=== PATIENT | female | born 1950 | race Caucasian/White ===

== ENCOUNTER 2017-06-14 17:48 | Inpatient (IN) | payer MEDICARE ==
[2017-06-14 19:30] LABS: CKMB 5.9 ng/mL (0-6.6)
[2017-06-14 19:35] LABS: Troponin I 1.294 ng/mL (< 0.028)
[2017-06-14] MEDS ORDERED: Enoxaparin Sodium 100 MG/ML SYRINGE ONE (20:03)
[2017-06-14] MEDS ORDERED: Nitroglycerin 2% Ointment 1 INCH/1 GM Packet ONE ×2 (20:03→20:04)
[2017-06-14] MEDS ORDERED: Acetaminophen 325 MG TAB ONE (20:03)
[2017-06-14 21:50] LABS: #Basophils 0.1 thou/uL (0.0-0.2); #Eosinphils 0.3 thou/uL (0.0-0.7); #Lymphocytes 1.7 thou/uL (1.20-3.40); #Monocytes 0.5 thou/uL (0.11-0.59); #Neutrophils 3.9 thou/uL (1.40-6.50); %Basophils 0.9 % (0.0-1.0); %Lymphocytes 26.4 % (21.0-51.0); %Monocytes 7.1 % (0.0-10.0); %Neutrophils 60.5 % (42.0-75.0); Hemoglobin 13.9 g/dL (12.0-16.0); Mean Corpuscular HGB CONC 32.2 g/dL (32.0-36.0); Mean Corpuscular Hemoglobin 30.2 pg (27.0-31.0); Mean Corpuscular Volume 93.8 fl (81.0-99.0); Mean Platelet Volume 8.4 fL (7.4-10.4); Platelet Count 240 thou/uL (130-400); RBC Distribution Width 11.7 % (11.5-14.5); Red Blood Cell (RBC) Count 4.59 mill/uL (4.20-5.40); White Blood Cell (WBC) Count 6.5 thou/uL (4.8-10.8)
[2017-06-14 22:00] LABS: ALT (SGPT) 21 U/L (8-55); AST (SGOT) 23 U/L (5-34); Alkaline Phosphatase 92 U/L (40-150); Anion Gap 13 mmol/L (10-20); BUN (Urea Nitrogen) 23 mg/dL (9.8-20.1); Bilirubin, Total 0.7 mg/dL (0.2-1.2); Calc. Creatinine Clearance 0 mL/min (70-130); Calcium 9.5 mg/dL (7.8-10.44); Carbon Dioxide 27 mmol/L (23-31); Chloride 103 mmol/L (98-107); Estimated GFR-MDRD 38; Globulin 3.4 g/dL (2.4-3.5); Glucose 90 mg/dL (80-115); Potassium 4.2 mmol/L (3.5-5.1); Protein, Total 7.4 g/dL (6.0-8.3); Sodium 139 mmol/L (136-145)
[2017-06-14] MEDS ORDERED: Sodium Chloride 0.9% 1,000 ML IV SCH ×2 (22:07→22:15)
[2017-06-14] MEDS ORDERED: Senokot 8.6 MG TAB PO PRN (22:15)
[2017-06-14] MEDS ORDERED: Nitroglycerin 0.4 MG TAB (25 Tab Bottle) SL PRN (22:15)
[2017-06-14] MEDS ORDERED: Ondansetron HCl/PF 4 MG/2 ML Vial IVP PRN (22:15)
[2017-06-14] MEDS ORDERED: Mag-Al 1200 mg/1200 mg/30 ML UDCUP PO PRN (22:15)
[2017-06-14] MEDS ORDERED: Calcium Carbonate 500 MG ChewTAB PO PRN (22:15)
[2017-06-14] MEDS ORDERED: Bisacodyl 5 MG TAB PO PRN (22:15)
[2017-06-14 22:26] LABS: CKMB 5.9 ng/mL (0-6.6)
[2017-06-14 22:28] VITALS: BMI 41.0
[2017-06-14 22:29] LABS: Troponin I 1.638 ng/mL (< 0.028)
[2017-06-14] MEDS ORDERED: ALPRAZolam 0.25 MG TAB PO PRN (23:35)
[2017-06-14] MEDS ORDERED: Simvastatin 20 MG TAB PO SCH (23:37)
[2017-06-14 23:42] LABS: Bilirubin Negative (Negative); Blood, Urine Negative (Negative); Clarity CLEAR (Clear); Glucose, Urine (Dipstick) Negative (Negative); Leukocyte Negative (Negative); Nitrite Negative (Negative); Protein, Urine (Dipstick) Negative (Neg-Trace); Specific Gravity, Urine 1.026 (1.002-1.036); Urobilinogen 0.2 mg/dL (0.2-1.0); pH, Urine 5.5 (5.0-9.0)
[2017-06-14] MEDS ORDERED: ALPRAZolam 0.5 MG TAB PO SCH (23:45)
[2017-06-15] MEDS: Losartan 25 MG TAB PO SCH ×2 (00:01→20:34)
--- NOTE | 2017-06-15 00:57 | HP ---
DATE OF ADMISSION: 06/14/2017 PRIMARY CARE PHYSICIAN: Jacquelyn Dangelo M.D. PRIMARY RN GASTROENTEROLOGY: Katie Rivera M.D. CHIEF COMPLAINT: Chest pain and palpitations. HISTORY OF PRESENT ILLNESS: Ms. Jones is a pleasant 67-year-old female with past medical history of GERD, hypothyroidism, chronic kidney disease stage 3, hypertension, and dyslipidemia, who presented to outside emergency room with the above-mentioned complaint. History is mainly obtained by the criselda ent herself and electronic medical records have been reviewed. According to Ms. Jones, she has been feeling fine up until this morning. All of sudden while she wa s working in the house, she had the feeling of chest pain that started as an indigestion. She says n ormally she gets indigestion, but this was different and the fact that the symptoms did not go away a nd it got worse. She started to have severe pain in the substernal area and she rates it as a 9/10 i n intensity. It went through her back and between her shoulder blades and her left shoulder. She de nies any arm paraesthesias. She did have faster breathing with that, but denies any shortness of autmun ath. She was not nauseated and did not feel dizzy. However, she felt that her heart was beating rick lly fast. She called the EMS and took her 's baby aspirin and felt marginal relief. EMS gave her nitroglycerin, which helped ease the pain to about 2/10. She also reported that the EKG done by the EMS people was unremarkable reportedly, so she was brought in to the outside emergency room. Th is is in [place]. Her initial troponin over there was 0.05 with repeat troponin of 0.3, otherwise normal CK-MBs. Over there, her EKG was negative for ischemia, but showing PVCs and trigeminy. She w as transferred here to our emergency room for further evaluation. In our emergency room, her blood pressure upon presentation was 171/108 and she was saturating 98% on room air with heart rate of 83. Her repeat troponin in our emergency room was 1.294. She was given one dose of subcutaneous Lovenox at therapeutic dose of 1 mg/kg. Cardiology was consulted. She was also given rectal Tylenol, transdermal nitroglycerin 1 inch and IV fluids one liter. The case was d iscussed with Dr. Orosco by the emergency room physician, Dr. Sanders and she is now being admitted for further evaluation and non-ST elevation MS. The patient reports that she has had a stress test done [place] [address] Rivera as an outpatient and wa s unremarkable. However, she reports that she had an echocardiogram done in December last year which was reportedly "somewhat abnormal," but the plan was to monitor her symptoms. She denies any ongoing chronic symptoms like easy fatigue or dyspnea on exertion or edema or angina-like symptoms on a caroline y basis. She denies otherwise any other recent illnesses. PAST MEDICAL HISTORY: 1. Hypertension. 2. Dyslipidemia. 3. Gastroesophageal reflux disease. 4. Hypothyroidism. 5. Chronic kidney disease stage 3. 6. Uterine prolapse. 7. Urinary incontinence. 8. Glaucoma. 9. Seasonal asthma. PAST SURGICAL HISTORY: Hysterectomy in 2016 and left knee surgery. PSYCHIATRIC HISTORY: None. SOCIAL HISTORY: She is and lives with her family. No history of drug, tobacco or alcohol ab use. FAMILY HISTORY: Coronary artery disease in her father in his 50s who has suffered 2 heart attacks. Also, both of her paternal grandparents had cardiac disease. She denies any stroke or cancer, diabet es or hypertension running in her family. ALLERGIES: PENICILLIN G SODIUM. CURRENT MEDICATIONS: Losartan/hydrochlorothiazide 50/12.5 mg daily, simvastatin 10 mg daily, levothy roxine 75 mcg daily, omeprazole 20 mg daily, latanoprost eye drops once a day. REVIEW OF SYSTEMS: The patient currently is chest pain free, but is feeling somewhat palpitations an d anxiety. Other than that, a 10-point review of system is negative, except for those mentioned in t he history and physical. The following complete review of systems was negative, unless otherwise men tioned in the HPI or below: Constitutional: Weight loss or gain, ability to conduct usual activitie s. Skin: Rash, itching. Eyes: Double vision, pain. ENT/Mouth: Nose bleeding, neck stiffness, pa in, tenderness. Cardiovascular: Palpitations, dyspnea on exertion, orthopnea. Respiratory: Shortn ess of breath, wheezing, cough, hemoptysis, fever or night sweats. Gastrointestinal: Poor appetite, abdominal pain, heartburn, nausea, vomiting, constipation, or diarrhea. Genitourinary: Urgency, fr equency, dysuria, nocturia. Musculoskeletal: Pain, swelling. Neurologic/Psychiatric: Anxiety, dep ression. Allergy/Immunologic: Skin rash, bleeding tendency. LABORATORY EXAMINATION: Her most recent labs include CBC unremarkable. Serum chemistries show BUN o f 23, creatinine 1.40, otherwise unremarkable. Her repeat troponin in our facility is 1.29 and then 1.638. CK-MB is normal. Chest x-ray is not available, I am not sure if it was done in the outside emergency room. EKG was re viewed by myself, which shows some ST-T wave depression in the inferior leads and trigeminy, otherwis e sinus rhythm. PHYSICAL EXAMINATION: VITAL SIGNS: Most recent vital signs, temperature 97.9, pulse of 77, respirations 16, saturating 94% on room air, and blood pressure 142/73. GENERAL: She appears somewhat anxious, but is otherwise awake, alert, oriented x3, in no acute distr ess. HEENT: Mucous membrane is moist and pink. No oropharyngeal exudate or erythema. Head is normocepha lic, atraumatic. Pupils equal, reactive to light and accommodation. Extraocular movement intact. NECK: Supple without any lymphadenopathy, JVD or bruit. CHEST: Clear to auscultation without any wheezing, rales or rhonchi. Rate and rhythm is regular wit hout any murmur, rubs or gallops. ABDOMEN: Soft, nontender, nondistended with positive bowel sounds. EXTREMITIES: Free of any cyanosis, clubbing, or edema. NEUROLOGIC: Nonfocal. SKIN: Free of any rashes or bruises. PSYCHIATRIC: Some anxiety noticed. VASCULAR: +2 pedal pulses felt bilaterally. IMPRESSION AND PLAN: 1. Non-ST elevation myocardial infarction. The patient's symptoms are all consistent with an acute cardiac event. She will be admitted to the telemetry unit with close monitoring. We will also use o xygen, morphine, aspirin, as well as continuation of ARBs. Cardiology is aware and the plan is for h er to go to the cardiac catheterization lab in the morning. She has received 1 dose of Lovenox at th erapeutic range in the emergency room and we will hold any further anticoagulation in light of the mt ed of cardiac catheterization in the morning. If she does not have cardiac catheterization in the mo rning, we will start her on heparin drip versus continuation of 1 mg/kg Lovenox b.i.d. dosing. We wi ll defer this with Cardiology team at this time. Her blood pressure has been on the rather lower beronica e after receiving nitroglycerin in the emergency room, so we will hold the beta blockers, but add bet a blockers at a small dose if her blood pressure allows. At this time, use Xanax for the anxiety sym ptoms associated with ongoing cardiac issues. Add normal saline as the patient will be n.p.o. after midnight. Otherwise, in situ symptomatic and supportive care and p.r.n. medications. 2. Dyslipidemia. Continue with Zocor. The patient had a lipid panel done earlier this month with L DL of 97, HDL of 52, total cholesterol 167, triglyceride 91. At this time, there is no reason to stew nge or increase her dose. 3. Chronic kidney disease. The patient appears to be at baseline which is around 1.30 to 1.40. Nor mal saline has been started to prevent renal injury in light of the need for cardiac catheterization. 4. Hypertension. Resume her ARB, but hold hydrochlorothiazide to prevent kidney injury. If the bloo d pressure allow, we will add small dose of beta godfrey. 5. Hypothyroidism. Continue Synthroid for now. She will continue to follow with her primary care sarwat duarte. Her TSH was 1.8754 and 06/04/2017. Continue with current dose of Synthroid. 6. Deep venous thrombosis and gastrointestinal prophylaxis. 7. Code status: FULL CODE, discussed with the patient. DISPOSITION: Ms. Jones is currently being admitted to the hospital for non-ST elevation MS and acut e coronary syndrome. Further management will depend upon her clinical course. Estimated length of s jarad at this time is at least 2 to 3 midnights.
[2017-06-15 01:27] LABS: CKMB 5.2 ng/mL (0-6.6)
[2017-06-15 01:34] LABS: Critical Call Chem Troponin I RESULT DECREASING; Troponin I 1.136 ng/mL (< 0.028)
[2017-06-15 05:26] LABS: #Basophils 0.1 thou/uL (0.0-0.2); #Eosinphils 0.3 thou/uL (0.0-0.7); #Lymphocytes 1.9 thou/uL (1.20-3.40); #Monocytes 0.6 thou/uL (0.11-0.59); %Eosinophils 5.7 % (0.0-10.0); %Lymphocytes 32.4 % (21.0-51.0); %Monocytes 10.4 % (0.0-10.0); %Neutrophils 50.5 % (42.0-75.0); Hemoglobin 12.3 g/dL (12.0-16.0); Mean Corpuscular Hemoglobin 31.9 pg (27.0-31.0); Mean Corpuscular Volume 93.7 fl (81.0-99.0); Mean Platelet Volume 8.3 fL (7.4-10.4); Platelet Count 209 thou/uL (130-400); RBC Distribution Width 11.8 % (11.5-14.5); Red Blood Cell (RBC) Count 3.87 mill/uL (4.20-5.40); White Blood Cell (WBC) Count 5.9 thou/uL (4.8-10.8)
[2017-06-15 05:35] LABS: Anion Gap 10 mmol/L (10-20); BUN (Urea Nitrogen) 25 mg/dL (9.8-20.1); CKMB 4.5 ng/mL (0-6.6); Calc. Creatinine Clearance 69 mL/min (70-130); Calcium 8.7 mg/dL (7.8-10.44); Carbon Dioxide 28 mmol/L (23-31); Chloride 105 mmol/L (98-107); Estimated GFR-MDRD 40; Glucose 89 mg/dL (80-115); Potassium 3.8 mmol/L (3.5-5.1); Sodium 139 mmol/L (136-145)
[2017-06-15 05:36] LABS: Critical Call Chem Troponin I RESULT DECREASING; Troponin I 0.838 ng/mL (< 0.028)
[2017-06-15] MEDS: Levothyroxine Sodium 75 MCG TAB PO SCH (05:37)
[2017-06-15] MEDS: Famotidine 20 MG TAB PO SCH (08:52)
[2017-06-15] MEDS: Enoxaparin Sodium 100 MG/ML SYRINGE SC SCH ×2 (08:52→20:34)
[2017-06-15] MEDS: Aspirin 325 MG TAB PO SCH (08:52)
[2017-06-15] MEDS: Nitroglycerin 2% Ointment 1 INCH/1 GM Packet TOP SCH ×2 (08:52→16:59)
[2017-06-15] MEDS: Carvedilol 3.125 MG TAB PO SCH ×2 (08:52→16:59)
[2017-06-15] MEDS ORDERED: Famotidine/PF 20 mg/2ml Vial SLOW IVP SCH (09:00)
[2017-06-15] MEDS ORDERED: Enoxaparin Sodium 30 MG/0.3 ML SYRINGE SC SCH (09:00)
[2017-06-15] MEDS ORDERED: Prevnar 13-Val Conj/PF 0.5 ML SYRINGE IM ONE (09:00)
[2017-06-15] MEDS ORDERED: Famotidine 20 MG TAB PO SCH (09:00)
[2017-06-15] MEDS: Acetaminophen 325 MG TAB PO PRN ×2 (09:11→17:02)
[2017-06-15] MEDS: Sodium Chloride 0.9% 1,000 ML IV SCH ×2 (10:28→19:35)
[2017-06-15 10:47] LABS: Magnesium 2.1 mg/dL (1.6-2.6); Phosphorus 4.3 mg/dL (2.3-4.7)
--- NOTE | 2017-06-15 17:25 | CON ---
DATE OF CONSULTATION: 06/15/2017 HISTORY OF PRESENT ILLNESS: The patient is a 67-year-old woman, who presents for evaluation of chest discomfort. The patient has no previous cardiac history. She has previously undergone a stress test and echocardiogram, which were apparently unremarkable. The patient developed acute onset of midsternal chest discomfort. This radiated to her back. The patient came to the emergency room and received nitroglycerin with resolution of her chest pain. PAST MEDICAL HISTORY: 1. Hypertension. 2. Hypercholesterolemia. 3. Chronic renal insufficiency. PAST SURGICAL HISTORY: Knee surgery and hysterectomy. FAMILY HISTORY: Positive family history of heart disease. SOCIAL HISTORY: Nonsmoker. ALLERGIES: PENICILLIN. REVIEW OF SYSTEMS: No history of easy bruising or bleeding. Ten-point system is otherwise unremarkable. PHYSICAL EXAMINATION: GENERAL: An obese woman in no acute distress. VITAL SIGNS: Blood pressure is 119/63. NECK: No jugular distention, no carotid bruits. LUNGS: Clear to auscultation. HEART: Regular rate and rhythm, normal S1, S2, no murmurs. ABDOMEN: Distended. EXTREMITIES: Showed trace edema. SKIN: Warm and dry. NEUROLOGIC: Nonfocal. VASCULAR: Radial pulses 2+. LABORATORY DATA: Sodium 139, potassium 3.8, chloride 105, bicarbonate 28, BUN 25, creatinine 1.3, troponin 0.83. White blood cell count 5.9, hemoglobin 12.3 , hematocrit 36.3 and platelets are 209,000. EKG revealed normal sinus rhythm with a normal ECG. IMPRESSION: 1. Non-Q-wave myocardial infarction. 2. Hypertension. 3. Chronic renal insufficiency. 4. Obesity. PLAN: This patient presents with a non-Q-wave myocardial infarction. The patient is being treated with aspirin, Lovenox, and lipid lowering medication. The patient has also been started on beta-godfrey therapy. An echocardiogram will be obtained. We will follow this patient with you through her hospitalization. [place]
--- NOTE | 2017-06-15 19:27 | PDOC.PN ---
- Subjective Encounter Start Date: 06/15/17 Encounter Start Time: 09:30 Patient seen and examined. No new complaints. No overnight events. No CP/SOB/ syncope - Objective MAR Reviewed: Yes Vital Signs & Weight: Vital Signs (12 hours) Temp Pulse Resp BP Pulse Ox 06/15/17 15:13 97.9 F 72 18 125/65 92 L 06/15/17 11:31 97.3 F L 67 18 114/58 L 96 06/15/17 08:52 97.6 F 69 16 95 Weight Weight 231 lb 6.4 oz I&O: 06/14/17 06/15/17 06/16/17 06:59 06:59 06:59 Output Total 100 Balance -100 Result Diagrams: 06/15/17 04:00 06/15/17 04:00 Radiology Reviewed by me: Yes (CXR - negative) EKG Reviewed by me: Yes (Tele SR) Phys Exam - Physical Examination Constitutional: NAD Neck: no JVD Respiratory: no wheezing, no rales, no rhonchi, clear to auscultation bilateral Cardiovascular: RRR, no significant murmur, no rub no heaves/pulsations Gastrointestinal: soft, non-tender, no distention, positive bowel sounds Musculoskeletal: no edema Neurological: non-focal, normal sensation, moves all 4 limbs Psychiatric: A&O x 3 Dx/Plan - Plan DVT proph w/lovenox, DVT proph w/SCDs IMPRESSION: 1. NSTEMI 2. CKD 3 3. Morbid Obesity BMI 41 4. Dyslipidemia 5. HTN / Hypothyroidism PLAN: * Cont 1 mg/kg Lovenox * Add Nitro patch * Cont ASA / Statins * Cont Levothyroxine * cont Losartan * HCTZ on hold * NPO past MN for possible Cath in AM * Cardio input appreciated Review of Systems - Review of Systems Respiratory: negative: Cough, Dry, Shortness of Breath, Hemoptysis, SOB with Excertion, Pleuritic Pain, Sputum, Wheezing Cardiovascular: negative: chest pain, palpitations, orthopnea, paroxysmal nocturnal dyspnea, edema, light headedness Gastrointestinal: negative: Nausea, Vomiting, Abdominal Pain, Diarrhea, Constipation, Melena, Hematochezia - Medications/Allergies Allergies/Adverse Reactions: Allergies Allergy/AdvReac Type Severity Reaction Status Date / Time Penicillins Allergy Verified 06/14/17 22:06 Medications: Current Medications Acetaminophen (Tylenol) 650 mg PO Q4H PRN PRN Reason: Headache/Fever or Pain Last Admin: 06/15/17 17:02 Dose: 650 mg Al Hydroxide/Mg Hydroxide (Maalox) 30 ml PO Q6H PRN PRN Reason: Heartburn or Indigestion Alprazolam (Xanax) 0.25 mg PO BIDPRN PRN PRN Reason: Anxiety Aspirin (Aspirin) 325 mg PO DAILY [facility] Last Admin: 06/15/17 08:52 Dose: 325 mg Atorvastatin Calcium (Lipitor) 40 mg PO [facility] Bisacodyl (Dulcolax) 10 mg PO DAILYPRN PRN PRN Reason: Constipation Calcium Carbonate (Tums) 1,000 mg PO Q4H PRN PRN Reason: Heartburn or Indigestion Carvedilol (Coreg) 3.125 mg PO BID-[facility] Last Admin: 06/15/17 16:59 Dose: 3.125 mg Enoxaparin Sodium (Lovenox) 100 mg SC 0900,2100 [facility] Stop: 06/15/17 22:00 Last Admin: 06/15/17 08:52 Dose: 100 mg Famotidine (Pepcid) 20 mg PO DAILY [facility] Last Admin: 06/15/17 08:52 Dose: 20 mg Sodium Chloride (Normal Saline 0.9%) 1,000 mls @ 50 mls/hr IV .Q20H [facility] Last Admin: 06/15/17 10:28 Dose: 1,000 mls Latanoprost (Xalatan 0.005% Ophth Soln) 1 drop EA EYE [facility] Levothyroxine Sodium (Synthroid) 75 mcg PO 0600 [facility] Last Admin: 06/15/17 05:37 Dose: 75 mcg Losartan Potassium (Cozaar) 50 mg PO [facility] Last Admin: 06/15/17 00:01 Dose: 50 mg Multivitamins (Theragran) 1 tab PO [facility] Nitroglycerin (Nitrostat) 0.4 mg SL Q5MIN PRN PRN Reason: Chest Pain Nitroglycerin (Nitro-Bid 2% Ointment) 0.5 inch TOP Q8H [facility] Last Admin: 06/15/17 16:59 Dose: 0.5 inch Ondansetron HCl (Zofran) 4 mg IVP Q6H PRN PRN Reason: Nausea/Vomiting Pantoprazole Sodium (Protonix) 40 mg PO DAILY [facility] Senna (Senokot) 2 tab PO HSPRN PRN PRN Reason: Constipation Sodium Chloride (Flush - Normal Saline) 10 ml IVF Q12HR [facility] Sodium Chloride (Flush - Normal Saline) 10 ml IVF PRN PRN PRN Reason: Saline Flush
[2017-06-15] MEDS: Multivit, Therapeutic 1 TAB PO SCH (20:34)
[2017-06-15] MEDS: Latanoprost 0.005% Ophth Soln 2.5 ml Bottle EA EYE SCH (20:39)
[2017-06-15] MEDS ORDERED: Non-Formulary Item 1 EACH (Simvastatin [Zocor] 10 MG) PO SCH (21:00)
[2017-06-15] MEDS ORDERED: Atorvastatin Calcium 20 MG TAB PO SCH (21:00)
[2017-06-15] MEDS ORDERED: Atorvastatin Calcium 40 MG TAB PO SCH (21:00)
[2017-06-16] MEDS: Nitroglycerin 2% Ointment 1 INCH/1 GM Packet TOP SCH ×4 (00:13→23:45)
[2017-06-16] MEDS: Acetaminophen 325 MG TAB PO PRN ×2 (00:15→17:41)
[2017-06-16] MEDS ORDERED: Dicyclomine 10 MG CAP PO PRN (03:53)
[2017-06-16] MEDS: Levothyroxine Sodium 75 MCG TAB PO SCH (06:21)
[2017-06-16] MEDS: Carvedilol 3.125 MG TAB PO SCH ×2 (07:17→17:41)
[2017-06-16] MEDS: Aspirin 325 MG TAB PO SCH (08:36)
[2017-06-16] MEDS: Famotidine 20 MG TAB PO SCH (08:37)
[2017-06-16] MEDS: Sodium Chloride 0.9% 1,000 ML IV SCH (16:11)
--- NOTE | 2017-06-16 17:53 | PDOC.CTH ---
Cardiology Progress Note - Subjective Pt. was seen and eval. today. She denies chest pain or SOB. CIE's were + for NSTEMI. Plan for cardiac cath today but due to emergencies the cath will be delayed until tomorrow. - Objective Vital Signs Temp Pulse Resp BP Pulse Ox 06/16/17 15:05 98.5 F 71 16 136/72 93 L 06/16/17 11:05 98.4 F 74 16 113/60 92 L 06/16/17 08:35 98.5 F 74 16 95 06/16/17 07:15 98.5 F 74 16 132/77 95 Weight 235 lb 4.8 oz 06/15/17 06/16/17 06/17/17 06:59 06:59 06:59 Intake Total 897 Output Total 100 Balance 797 - Physical Examination General/Neuro: alert & oriented x3 Neck: carotid US brisk Lungs: CTA Heart: RRR Abdomen: NT/ND - Labs Result Diagrams: 06/15/17 04:00 06/15/17 04:00 Troponin/CKMB CK-MB (CK-2) 4.5 ng/mL (0-6.6) 06/15/17 04:00 Troponin I 0.838 ng/mL (< 0.028) H* 06/15/17 04:00 - Assessment/Plan 1. NSTEMI: stable at the present time. Plan for cardiac cath tomorrow. 2. Dyslipidemia. 3. HTN. stable Review of Systems - Review of Systems Constitutional: reports: no symptoms reported Respiratory: reports: no symptoms reported Cardiac (ROS): reports: no symptoms reported ABD/GI: reports: no symptoms reported : reports: no symptoms reported Musculoskeletal: reports: no symptoms reported Neurological: reports: no symptoms reported
[2017-06-16] MEDS: Losartan 25 MG TAB PO SCH (20:12)
[2017-06-16] MEDS: Multivit, Therapeutic 1 TAB PO SCH (20:12)
[2017-06-16] MEDS: Latanoprost 0.005% Ophth Soln 2.5 ml Bottle EA EYE SCH (20:14)
[2017-06-16] MEDS ORDERED: Atorvastatin Calcium 20 MG TAB PO SCH (21:00)
[2017-06-16] MEDS ORDERED: Enoxaparin Sodium 100 MG/ML SYRINGE SC SCH (21:00)
--- NOTE | 2017-06-16 21:13 | PDOC.PN ---
- Subjective Encounter Start Date: 06/16/17 Encounter Start Time: 11:00 Patient seen and examined. No new complaints. No overnight events. No CP/syncope /palpitations - Objective MAR Reviewed: Yes Vital Signs & Weight: Vital Signs (12 hours) Temp Pulse Resp BP Pulse Ox 06/16/17 18:20 97.7 F 72 18 136/78 94 L 06/16/17 15:05 98.5 F 71 16 136/72 93 L 06/16/17 11:05 98.4 F 74 16 113/60 92 L Weight Weight 235 lb 4.8 oz I&O: 06/15/17 06/16/17 06/17/17 06:59 06:59 06:59 Intake Total 897 Output Total 100 Balance 797 Result Diagrams: 06/15/17 04:00 06/15/17 04:00 EKG Reviewed by me: Yes (Tele SR) Phys Exam - Physical Examination Constitutional: NAD Respiratory: no wheezing, no rhonchi Cardiovascular: RRR, no rub Gastrointestinal: soft, non-tender, positive bowel sounds Musculoskeletal: no edema Neurological: moves all 4 limbs Dx/Plan - Plan DVT proph w/lovenox, DVT proph w/SCDs IMPRESSION: 1. NSTEMI 2. CKD 3 3. Morbid Obesity BMI 41 4. Dyslipidemia 5. HTN / Hypothyroidism PLAN: * Await Cath * Cont 1 mg/kg Lovenox with Nitro patch * Cont ASA / Statins / Losartan * Cont Levothyroxine * Cardio following Review of Systems - Review of Systems Respiratory: negative: Cough, Dry, Shortness of Breath, Hemoptysis, SOB with Excertion, Pleuritic Pain, Sputum, Wheezing Cardiovascular: negative: chest pain, palpitations, orthopnea, paroxysmal nocturnal dyspnea, edema, light headedness, other - Medications/Allergies Allergies/Adverse Reactions: Allergies Allergy/AdvReac Type Severity Reaction Status Date / Time Penicillins Allergy Verified 06/14/17 22:06 Medications: Current Medications Acetaminophen (Tylenol) 650 mg PO Q4H PRN PRN Reason: Headache/Fever or Pain Last Admin: 06/16/17 17:41 Dose: 650 mg Al Hydroxide/Mg Hydroxide (Maalox) 30 ml PO Q6H PRN PRN Reason: Heartburn or Indigestion Alprazolam (Xanax) 0.25 mg PO BIDPRN PRN PRN Reason: Anxiety Aspirin (Aspirin) 325 mg PO DAILY [facility] Last Admin: 06/16/17 08:36 Dose: 325 mg Atorvastatin Calcium (Lipitor) 40 mg PO [facility] Last Admin: 06/16/17 20:15 Dose: Not Given Bisacodyl (Dulcolax) 10 mg PO DAILYPRN PRN PRN Reason: Constipation Calcium Carbonate (Tums) 1,000 mg PO Q4H PRN PRN Reason: Heartburn or Indigestion Carvedilol (Coreg) 3.125 mg PO BID-[facility] Last Admin: 06/16/17 17:41 Dose: 3.125 mg Dicyclomine HCl (Bentyl) 10 mg PO QID PRN PRN Reason: cramps Last Admin: 06/16/17 04:02 Dose: 10 mg Enoxaparin Sodium (Lovenox) 100 mg SC 2100 [facility] Stop: 06/16/17 23:00 Last Admin: 06/16/17 20:14 Dose: 100 mg Famotidine (Pepcid) 20 mg PO DAILY [facility] Last Admin: 06/16/17 08:37 Dose: 20 mg Sodium Chloride (Normal Saline 0.9%) 1,000 mls @ 50 mls/hr IV .Q20H [facility] Last Admin: 06/16/17 16:11 Dose: 1,000 mls Latanoprost (Xalatan 0.005% Oph Soln) 1 drop EA EYE [facility] Last Admin: 06/16/17 20:14 Dose: 1 drop Levothyroxine Sodium (Synthroid) 75 mcg PO 0600 [facility] Last Admin: 06/16/17 06:21 Dose: 75 mcg Losartan Potassium (Cozaar) 50 mg PO [facility] Last Admin: 06/16/17 20:12 Dose: 50 mg Multivitamins (Theragran) 1 tab PO [facility] Last Admin: 06/16/17 20:12 Dose: 1 tab Nitroglycerin (Nitrostat) 0.4 mg SL Q5MIN PRN PRN Reason: Chest Pain Nitroglycerin (Nitro-Bid 2% Ointment) 0.5 inch TOP Q8H [facility] Last Admin: 06/16/17 17:41 Dose: 0.5 inch Ondansetron HCl (Zofran) 4 mg IVP Q6H PRN PRN Reason: Nausea/Vomiting Last Admin: 06/16/17 00:06 Dose: 4 mg Pantoprazole Sodium (Protonix) 40 mg PO DAILY [facility] Last Admin: 06/16/17 08:37 Dose: 40 mg Senna (Senokot) 2 tab PO HSPRN PRN PRN Reason: Constipation Sodium Chloride (Flush - Normal Saline) 10 ml IVF Q12HR [facility] Last Admin: 06/16/17 20:19 Dose: Not Given Sodium Chloride (Flush - Normal Saline) 10 ml IVF PRN PRN PRN Reason: Saline Flush
[2017-06-17 05:33] LABS: #Eosinphils 0.4 thou/uL (0.0-0.7); #Lymphocytes 1.7 thou/uL (1.20-3.40); #Monocytes 0.5 thou/uL (0.11-0.59); #Neutrophils 2.6 thou/uL (1.40-6.50); %Basophils 0.4 % (0.0-1.0); %Eosinophils 7.7 % (0.0-10.0); %Lymphocytes 33.4 % (21.0-51.0); %Monocytes 9.5 % (0.0-10.0); Hemoglobin 11.2 g/dL (12.0-16.0); Mean Corpuscular HGB CONC 32.8 g/dL (32.0-36.0); Mean Corpuscular Hemoglobin 30.4 pg (27.0-31.0); Mean Corpuscular Volume 92.5 fl (81.0-99.0); Mean Platelet Volume 8.1 fL (7.4-10.4); Platelet Count 195 thou/uL (130-400); RBC Distribution Width 11.8 % (11.5-14.5); Red Blood Cell (RBC) Count 3.69 mill/uL (4.20-5.40); White Blood Cell (WBC) Count 5.2 thou/uL (4.8-10.8)
[2017-06-17 05:55] LABS: Anion Gap 8 mmol/L (10-20); BUN (Urea Nitrogen) 17 mg/dL (9.8-20.1); Calc. Creatinine Clearance 72 mL/min (70-130); Calcium 8.4 mg/dL (7.8-10.44); Carbon Dioxide 27 mmol/L (23-31); Chloride 109 mmol/L (98-107); Estimated GFR-MDRD 42; Glucose 83 mg/dL (80-115); Magnesium 1.9 mg/dL (1.6-2.6); Potassium 3.9 mmol/L (3.5-5.1); Sodium 140 mmol/L (136-145)
[2017-06-17] MEDS: Aspirin 325 MG TAB PO SCH (06:40)
[2017-06-17] MEDS: Carvedilol 3.125 MG TAB PO SCH (06:40)
[2017-06-17] MEDS: Levothyroxine Sodium 75 MCG TAB PO SCH (06:41)
[2017-06-17] MEDS: Famotidine 20 MG TAB PO SCH (06:41)
[2017-06-17] MEDS: Nitroglycerin 2% Ointment 1 INCH/1 GM Packet TOP SCH ×3 (08:34→23:42)
[2017-06-17] MEDS ORDERED: Midazolam HCl 2 mg/2 ml Vial ONE ×2 (09:34→10:26)
[2017-06-17] MEDS ORDERED: Fentanyl 100 MCG/2 ML VIAL ONE (09:34)
[2017-06-17] MEDS ORDERED: Lidocaine 1% (PF) 30 ML VIAL ONE (09:35)
[2017-06-17] MEDS ORDERED: Verapamil 5 MG/2 ML VIAL ONE (09:41)
[2017-06-17] MEDS ORDERED: Heparin 10,000 UNITS/1 ML VIAL ONE (09:41)
[2017-06-17] MEDS ORDERED: Nitroglycerin 100MG/250ML BOT 250 ML ONE (09:41)
[2017-06-17] MEDS ORDERED: Iopamidol 370 76% 100 ML VIAL ONE (09:46)
[2017-06-17] MEDS ORDERED: Iopamidol 370 76% 50 ML VIAL FS ONE (09:46)
[2017-06-17] MEDS ORDERED: TICAGRELOR 90 MG TABLET ONE (10:53)
[2017-06-17] MEDS: Sodium Chloride 0.9% 1,000 ML IV SCH ×2 (13:11→19:29)
[2017-06-17 13:53] LABS: Cardiac Risk 3.2 (Less than 4.5)
[2017-06-17] MEDS: Carvedilol 6.25 MG TAB PO SCH (15:36)
[2017-06-17] MEDS: Acetaminophen 325 MG TAB PO PRN (19:06)
[2017-06-17] MEDS: TICAGRELOR 90 MG TABLET PO SCH (20:32)
[2017-06-17] MEDS: Multivit, Therapeutic 1 TAB PO SCH (20:32)
[2017-06-17] MEDS: Losartan 25 MG TAB PO SCH (20:33)
[2017-06-17] MEDS: Latanoprost 0.005% Ophth Soln 2.5 ml Bottle EA EYE SCH (20:35)
[2017-06-17] MEDS ORDERED: Rosuvastatin 20 MG TAB PO SCH (21:00)
--- NOTE | 2017-06-17 23:00 | PDOC.PN ---
- Subjective Encounter Start Date: 06/17/17 Encounter Start Time: 14:30 Patient seen and examined. No new complaints. No overnight events - Objective MAR Reviewed: Yes Vital Signs & Weight: Vital Signs (12 hours) Temp Pulse Resp BP BP Pulse Ox 06/17/17 19:29 98.4 F 76 16 06/17/17 19:21 98.4 F 76 16 140/68 94 L 06/17/17 15:36 157/76 H 06/17/17 15:09 97.4 F L 66 16 140/72 99 06/17/17 12:17 77 16 164/82 H Weight Weight 236 lb I&O: 06/16/17 06/17/17 06/18/17 06:59 06:59 06:59 Intake Total 897 800 360 Output Total 624 593 7532 Balance 797 500 -740 Result Diagrams: 06/17/17 04:03 06/17/17 04:03 EKG Reviewed by me: Yes (Tele SR) Phys Exam - Physical Examination Constitutional: NAD Respiratory: no wheezing, no rhonchi Cardiovascular: RRR, no rub Gastrointestinal: soft, non-tender, positive bowel sounds Musculoskeletal: no edema Neurological: moves all 4 limbs Dx/Plan - Plan DVT proph w/SCDs IMPRESSION: 1. NSTEMI 2. CKD 3 3. Morbid Obesity BMI 41 4. Dyslipidemia 5. HTN / Hypothyroidism PLAN: * s/p Left Cx stent * Cont ASA / Losartan / Brilinta * Change Lipitor to Crestor due to diarrhea * Cont Levothyroxine * Cardio following * DC in AM if ok with Cardiology Review of Systems - Review of Systems Respiratory: negative: Cough, Dry, Shortness of Breath, Hemoptysis, SOB with Excertion, Pleuritic Pain, Sputum, Wheezing Cardiovascular: negative: chest pain, palpitations, orthopnea, paroxysmal nocturnal dyspnea, edema, light headedness, other - Medications/Allergies Allergies/Adverse Reactions: Allergies Allergy/AdvReac Type Severity Reaction Status Date / Time Penicillins Allergy Verified 06/14/17 22:06 Medications: Current Medications Acetaminophen (Tylenol) 650 mg PO Q4H PRN PRN Reason: Headache/Fever or Pain Last Admin: 06/17/17 19:06 Dose: 650 mg Al Hydroxide/Mg Hydroxide (Maalox) 30 ml PO Q6H PRN PRN Reason: Heartburn or Indigestion Alprazolam (Xanax) 0.25 mg PO BIDPRN PRN PRN Reason: Anxiety Last Admin: 06/17/17 09:21 Dose: 0.25 mg Aspirin (Aspirin Chewable) 81 mg PO DAILY [facility] Bisacodyl (Dulcolax) 10 mg PO DAILYPRN PRN PRN Reason: Constipation Calcium Carbonate (Tums) 1,000 mg PO Q4H PRN PRN Reason: Heartburn or Indigestion Carvedilol (Coreg) 6.25 mg PO BID-[facility] Last Admin: 06/17/17 15:36 Dose: 6.25 mg Dicyclomine HCl (Bentyl) 10 mg PO QID PRN PRN Reason: cramps Last Admin: 06/16/17 04:02 Dose: 10 mg Famotidine (Pepcid) 20 mg PO DAILY [facility] Last Admin: 06/17/17 06:41 Dose: 20 mg Sodium Chloride (Normal Saline 0.9%) 1,000 mls @ 50 mls/hr IV .Q20H [facility] Last Admin: 06/17/17 19:29 Dose: 1,000 mls Latanoprost (Xalatan 0.005% Oph Soln) 1 drop EA EYE [facility] Last Admin: 06/17/17 20:35 Dose: Not Given Levothyroxine Sodium (Synthroid) 75 mcg PO 0600 [facility] Last Admin: 06/17/17 06:41 Dose: 75 mcg Losartan Potassium (Cozaar) 50 mg PO [facility] Last Admin: 06/17/17 20:33 Dose: 50 mg Multivitamins (Theragran) 1 tab PO [facility] Last Admin: 06/17/17 20:32 Dose: 1 tab Nitroglycerin (Nitrostat) 0.4 mg SL Q5MIN PRN PRN Reason: Chest Pain Nitroglycerin (Nitro-Bid 2% Ointment) 0.5 inch TOP Q8H [facility] Last Admin: 06/17/17 13:10 Dose: 0.5 inch Ondansetron HCl (Zofran) 4 mg IVP Q6H PRN PRN Reason: Nausea/Vomiting Last Admin: 06/16/17 00:06 Dose: 4 mg Pantoprazole Sodium (Protonix) 40 mg PO DAILY [facility] Last Admin: 06/17/17 06:41 Dose: 40 mg Rosuvastatin Calcium (Crestor) 20 mg PO HS [facility] Last Admin: 06/17/17 20:33 Dose: 20 mg Senna (Senokot) 2 tab PO HSPRN PRN PRN Reason: Constipation Sodium Chloride (Flush - Normal Saline) 10 ml IVF Q12HR [facility] Last Admin: 06/17/17 20:34 Dose: Not Given Sodium Chloride (Flush - Normal Saline) 10 ml IVF PRN PRN PRN Reason: Saline Flush Ticagrelor (Brilinta) 90 mg PO BID [facility] Last Admin: 06/17/17 20:32 Dose: 90 mg
[2017-06-18 04:47] LABS: #Eosinphils 0.4 thou/uL (0.0-0.7); #Lymphocytes 1.3 thou/uL (1.20-3.40); #Monocytes 0.4 thou/uL (0.11-0.59); %Basophils 0.4 % (0.0-1.0); %Eosinophils 7.3 % (0.0-10.0); %Lymphocytes 24.7 % (21.0-51.0); %Monocytes 8.4 % (0.0-10.0); %Neutrophils 59.1 % (42.0-75.0); Hemoglobin 11.5 g/dL (12.0-16.0); Mean Corpuscular HGB CONC 34.1 g/dL (32.0-36.0); Mean Corpuscular Hemoglobin 31.1 pg (27.0-31.0); Mean Platelet Volume 7.9 fL (7.4-10.4); Platelet Count 186 thou/uL (130-400); RBC Distribution Width 11.6 % (11.5-14.5); Red Blood Cell (RBC) Count 3.69 mill/uL (4.20-5.40); White Blood Cell (WBC) Count 5.1 thou/uL (4.8-10.8)
[2017-06-18 04:59] LABS: ALT (SGPT) 54 U/L (8-55); AST (SGOT) 63 U/L (5-34); Albumin 3.2 g/dL (3.4-4.8); Alkaline Phosphatase 79 U/L (40-150); Anion Gap 9 mmol/L (10-20); BUN (Urea Nitrogen) 12 mg/dL (9.8-20.1); Bilirubin, Total 0.6 mg/dL (0.2-1.2); Calc. Creatinine Clearance 75 mL/min (70-130); Calcium 8.3 mg/dL (7.8-10.44); Carbon Dioxide 26 mmol/L (23-31); Chloride 108 mmol/L (98-107); Estimated GFR-MDRD 44; Globulin 2.8 g/dL (2.4-3.5); Glucose 94 mg/dL (80-115); Potassium 3.8 mmol/L (3.5-5.1); Sodium 139 mmol/L (136-145)
[2017-06-18] MEDS: Levothyroxine Sodium 75 MCG TAB PO SCH (06:00)
[2017-06-18 08:24] VITALS: TEMP 97.8
--- NOTE | 2017-06-18 08:40 | PDOC.CTH ---
Cardiology Progress Note - Subjective The pt seen and examined. No overnight events. No cardiac complaints. She had mod burning sensation to her Esophagus area prior to this admission. She still complains of mild discomfort to the area. - Objective Vital Signs Temp Pulse Resp BP Pulse Ox 06/18/17 07:17 97.8 F 71 20 136/81 95 06/18/17 03:55 98.0 F 71 16 131/72 95 06/17/17 23:11 98.6 F 64 16 128/69 94 L Weight 237 lb 06/17/17 06/18/17 06/19/17 06:59 06:59 06:59 Intake Total 800 1672 Output Total 300 1750 Balance 500 -78 - Physical Examination General/Neuro: alert & oriented x3 Neck: no JVD present Lungs: CTA Heart: RRR Abdomen: soft Extremities: other: (No edema; 1 cm diametor hematoma to Rt wrist,) - Telemetry Telemetry Rhythm: SR - Labs Result Diagrams: 06/18/17 04:13 06/18/17 04:13 Troponin/CKMB CK-MB (CK-2) 4.5 ng/mL (0-6.6) 06/15/17 04:00 Troponin I 0.838 ng/mL (< 0.028) H* 06/15/17 04:00 - Assessment/Plan 1. 3V CAD with s/p Cardiac cath with PCI x2 to distal Cx, and 100% occlusion in OM1, 50% in mid LAD, 10% in prox LAD, 50% in prox Cx, 50% in RCA; On BBlocker, ASA, ARE, and Brilinta 2. HTN - stable with current med. 3. CKD stage 3 - stable after Cath; 4. Dyslipidemia - no Diarrhea with Crestor at this moment; cont. to monitor 5. Hypothyroidism - on Levothyroxine 6. Obese - Weight management with diet and exercise education given to the pt and family MAR reviewed * From Cardiac standpoint, the pt si stable to d/pranay home. The pt will f/u with Dr Rivera's office within 2-4 wks. * Cardiac-related Discharge med: Crestor 20mg, Coreg 6.25mg bid, ASA 81mg, Losartan 50mg qd, and Brilinta 90mg BID Review of Systems - Review of Systems Constitutional: reports: no symptoms reported EENTM: reports: no symptoms reported Respiratory: reports: no symptoms reported Cardiac (ROS): reports: no symptoms reported ABD/GI: reports: no symptoms reported : reports: no symptoms reported Musculoskeletal: reports: no symptoms reported
[2017-06-18] MEDS: Famotidine 20 MG TAB PO SCH (09:30)
[2017-06-18] MEDS: TICAGRELOR 90 MG TABLET PO SCH (09:30)
[2017-06-18] MEDS: Nitroglycerin 2% Ointment 1 INCH/1 GM Packet TOP SCH (09:31)
[2017-06-18] MEDS: Carvedilol 6.25 MG TAB PO SCH (09:31)
[2017-06-18 09:32] VITALS: BP 157/76
--- NOTE | 2017-06-18 13:51 | DIS ---
DATE OF ADMISSION: 06/14/2017 DATE OF DISCHARGE: 06/18/2017 CONDITION AT THE TIME OF DISCHARGE: Stable and improved. DISCHARGE DIAGNOSES: 1. Non-Q-wave non-ST elevation myocardial infarction. 2. Three-vessel coronary artery disease, status post cardiac catheterization with PCI x2 to distal c ircumflex. 3. Hypertension. 4. Chronic kidney disease stage 3. 5. Dyslipidemia. 6. Hypothyroidism. 7. Obesity. PRIMARY CARE PHYSICIAN: Jacquelyn Dangelo M.D. DISCHARGE MEDICATIONS: Are as follows; multivitamin daily, omeprazole 40 mg every 48 hours, Synthroi d 75 mcg daily, latanoprost eye drops daily, Brilinta 90 mg p.o. b.i.d., Crestor 20 mg daily, Nitrost at 0.4 mg every 5 minutes as needed, Cozaar 50 mg daily, Coreg 6.25 mg p.o. b.i.d. and aspirin 81 mg daily. PROCEDURES DONE IN THE HOSPITAL: Include, 1. Cardiac catheterization which shows 3-vessel coronary artery disease and successful stenting with drug eluting stent of distal circumflex coronary artery disease. 2. Transthoracic echocardiogram which shows EF of 55%-60% and normal size left atrium and left ventr icle. CONSULTATIONS INHOUSE: Include Cardiology, Dr. Orosco and Dr. Rivera. HISTORY OF PRESENT ILLNESS: Ms. Jones is a 67-year-old pleasant female with past medical history of diabetes, hypertension, hypothyroidism, and chronic kidney disease who presented to the emergency ro om with complaints of chest pain and palpitations. She was found to have elevated cardiac enzymes as mentioned in my history and physical. She was otherwise hemodynamically stable upon presentation. She was started on subcutaneous b.i.d. dosing of Lovenox and was admitted for further evaluation and Cardiology was consulted. Please see admission history and physical for further details. HOSPITAL COURSE: She was seen by Cardiology and underwent a cardiac catheterization which showed 3-v essel coronary artery disease. She underwent successful stenting of the left circumflex. Her echoca rdiogram did not have any evidence of cardiomyopathy. She was started on new medication including as pirin, beta godfrey, ARB, Brilinta as well as Crestor, which she tolerated very well. At the time of discharge, she is hemodynamically stable and is cleared for discharge by Cardiology. She was seen and examined prior to discharge. PHYSICAL EXAMINATION: VITAL SIGNS: Today include temperature 97.8, pulse of 71, respirations 20, saturating 95% on room ai r, blood pressure 157/76. GENERAL: No acute distress. Awake and alert and oriented x3. is at bedside. CHEST: Clear to auscultation without any wheezing, rales or rhonchi. Rhythm is regular without any murmur, rubs or gallops. LABORATORY DATA: Her highest troponin was up to 1.638 and it trended down to 0.838. Her lipid panel was checked and was unremarkable with triglycerides of 49, cholesterol 123, LDL 74 and HDL 39. Her kidney function remained stable after the catheterization. Upon presentation, her creatinine was 1.4 0 and upon discharge it was 1.23. Discharge plan was discussed with patient and her . Lifestyle modification counseling was pro vided and they were receptive to that. They will further discuss it with her primary care physician. DISCHARGE APPOINTMENTS: 1. Primary care physician, Dr. Dangelo. 2. Cardiac rehabilitation outpatient in [place]. 3. Cardiology, Dr. Rivera. Total time spent in the discharge of this patient 32 minutes.
--- NOTE | 2017-06-19 15:02 | EKG ---
Test Reason : Blood Pressure : / mmHG Vent. Rate : 067 BPM Atrial Rate : 067 BPM P-R Int : 196 ms QRS Dur : 078 ms QT Int : 396 ms P-R-T Axes : 044 001 047 degrees QTc Int : 418 ms Normal sinus rhythm Normal ECG Confirmed by MONIK DONOVAN ([id number]), primer expeditor and drier ROXANE BLOOM ([id number]) on 06/19/2017 3:00:28 PM Referred By: Confirmed By:MONIK DONOVAN
== END 2017-06-18 12:23 | disposition home or self-care (01) | DRG 246 ==
LOC: ERS 17:48 → 2SW 19:06
PROVIDERS: ADMIT Internal Medicine; ATTEND Internal Medicine
PROC: 027034Z Dilation of Coronary Artery, One Artery with Drug-eluting Intraluminal Device, Percutaneous Approach (ICD-10-PCS; principal; 2017-06-17)
PROC: 4A023N7 Measurement of Cardiac Sampling and Pressure, Left Heart, Percutaneous Approach (ICD-10-PCS; 2017-06-17)
PROC: B2111ZZ Fluoroscopy of Multiple Coronary Arteries using Low Osmolar Contrast (ICD-10-PCS; 2017-06-17)
DX: I25.10 Atherosclerotic heart disease of native coronary artery without angina pectoris (principal); I21.4 Non-ST elevation (NSTEMI) myocardial infarction; N18.3 Chronic kidney disease, stage 3 (moderate); Z68.41 Body mass index [BMI] 40.0-44.9, adult; E66.01 Morbid (severe) obesity due to excess calories; E03.9 Hypothyroidism, unspecified; E78.5 Hyperlipidemia, unspecified; K21.9 Gastro-esophageal reflux disease without esophagitis; I12.9 Hypertensive chronic kidney disease with stage 1 through stage 4 chronic kidney disease, or unspecified chronic kidney disease
CPT/HCPCS: 36415; 80048; 80053; 80061; 81003; 82553; 83735; 84100; 84484; 85025; 85347; 90471; 90670; 92928; 92978; 93005; 93010; 93306; 93454; 93798; 94760; 96360; 96361; 96372; 99152; 99153; A4216; C1753; C1769; C1874; C1887; C9600; G0009; J1644; J1650; J2001; J2250; J2405; J3010

== ENCOUNTER 2017-06-21 01:26 | Observation (INO) | payer MEDICARE ==
[2017-06-21 01:53] LABS: #Eosinphils 0.5 thou/uL (0.0-0.7); #Lymphocytes 1.7 thou/uL (1.20-3.40); #Monocytes 0.4 thou/uL (0.11-0.59); #Neutrophils 3.7 thou/uL (1.40-6.50); %Basophils 0.6 % (0.0-1.0); %Eosinophils 7.2 % (0.0-10.0); %Lymphocytes 26.7 % (21.0-51.0); %Monocytes 6.9 % (0.0-10.0); %Neutrophils 58.4 % (42.0-75.0); Hemoglobin 12.8 g/dL (12.0-16.0); Mean Corpuscular HGB CONC 34.1 g/dL (32.0-36.0); Mean Corpuscular Hemoglobin 30.8 pg (27.0-31.0); Mean Corpuscular Volume 90.3 fl (81.0-99.0); Mean Platelet Volume 7.5 fL (7.4-10.4); Platelet Count 239 thou/uL (130-400); RBC Distribution Width 11.7 % (11.5-14.5); Red Blood Cell (RBC) Count 4.17 mill/uL (4.20-5.40); White Blood Cell (WBC) Count 6.4 thou/uL (4.8-10.8)
[2017-06-21 02:14] LABS: ALT (SGPT) 98 U/L (8-55); AST (SGOT) 62 U/L (5-34); Albumin 3.8 g/dL (3.4-4.8); Alkaline Phosphatase 93 U/L (40-150); Anion Gap 11 mmol/L (10-20); BUN (Urea Nitrogen) 15 mg/dL (9.8-20.1); Bilirubin, Total 0.5 mg/dL (0.2-1.2); CK (CPK) 114 U/L (29-168); Calc. Creatinine Clearance 0 mL/min (70-130); Calcium 9.5 mg/dL (7.8-10.44); Carbon Dioxide 28 mmol/L (23-31); Chloride 106 mmol/L (98-107); Estimated GFR-MDRD 39; Globulin 3.2 g/dL (2.4-3.5); Glucose 104 mg/dL (80-115); Sodium 141 mmol/L (136-145)
[2017-06-21 02:16] LABS: CKMB 1.8 ng/mL (0-6.6)
[2017-06-21 02:22] LABS: Critical Call Chem Troponin I RESULT DECREASING; Troponin I 0.489 ng/mL (< 0.028)
[2017-06-21 05:16] LABS: Troponin I 0.501 ng/mL (< 0.028)
[2017-06-21] MEDS ORDERED: Nitroglycerin 0.4 MG TAB (25 Tab Bottle) SL PRN ×2 (07:39→07:41)
[2017-06-21] MEDS ORDERED: Bisacodyl 5 MG TAB PO PRN ×2 (07:41)
[2017-06-21] MEDS ORDERED: Senokot 8.6 MG TAB PO PRN ×2 (07:41)
[2017-06-21] MEDS ORDERED: Calcium Carbonate 500 MG ChewTAB PO PRN (07:41)
[2017-06-21] MEDS ORDERED: Benzonatate 100 MG CAP PO PRN (07:41)
[2017-06-21] MEDS ORDERED: Loratadine 10 MG TAB PO PRN (07:41)
[2017-06-21] MEDS ORDERED: Acetaminophen 325 MG TAB PO PRN (07:41)
[2017-06-21] MEDS ORDERED: traMADol HCl 50 MG TAB PO PRN (07:41)
[2017-06-21] MEDS ORDERED: Lorazepam 1 MG TAB PO PRN (07:41)
[2017-06-21] MEDS ORDERED: Diabetic Tussin 200 MG/10 ML UDCUP PO PRN (07:41)
[2017-06-21] MEDS ORDERED: hydrALAZINE 20 MG/ML VIAL SLOW IVP PRN (07:41)
[2017-06-21] MEDS ORDERED: cloNIDine 0.1 MG TAB PO PRN (07:41)
[2017-06-21] MEDS ORDERED: Ondansetron HCl/PF 4 MG/2 ML Vial IVP PRN (07:41)
[2017-06-21] MEDS ORDERED: Enoxaparin Sodium 40 MG/0.4 ML SYRINGE SC SCH ×2 (09:00→21:00)
[2017-06-21] MEDS ORDERED: Famotidine 20 MG TAB PO SCH (09:00)
[2017-06-21] MEDS ORDERED: Enoxaparin Sodium 40 MG/0.4 ML SYRINGE ONE (09:04)
[2017-06-21] MEDS ORDERED: Nitroglycerin 0.4 MG TAB (25 Tab Bottle) ONE (09:38)
[2017-06-21] MEDS ORDERED: Furosemide 20 MG/2 ML VIAL SLOW IVP SCH (11:00)
[2017-06-21 11:13] LABS: Bilirubin Negative (Negative); Blood, Urine Negative (Negative); Clarity CLEAR (Clear); Glucose, Urine (Dipstick) Negative (Negative); Leukocyte Negative (Negative); Nitrite Negative (Negative); Protein, Urine (Dipstick) Negative (Neg-Trace); Specific Gravity, Urine 1.012 (1.002-1.036); Urobilinogen 0.2 mg/dL (0.2-1.0); pH, Urine 6.5 (5.0-9.0)
--- NOTE | 2017-06-21 11:22 | HP ---
PRIMARY CARE PHYSICIAN: Dr. Dangelo. CHIEF COMPLAINT: Palpitations and chest discomfort. HISTORY OF PRESENT ILLNESS: Ms. Jones is a very pleasant 67-year-old female with past medical histo ry of newly diagnosed coronary artery disease status post cardiac stenting on 06/14/2017 who presente d to the emergency room with above-mentioned complaint. History is mainly obtained by the patient he rself and electronic medical records have been reviewed. Ms. Jones was just here in the hospital and was discharged 2 days ago on 06/18/2017. During this ho spitalization, she has presented with chest pain and palpitations and was found to have non-Q-wave no n-ST elevation myocardial infarction. She underwent a cardiac catheterization, which showed 3-vessel coronary artery disease. She underwent PCI of the distal circumflex coronary artery. She was also found to have 100% obtuse marginal occlusion along with 50% occlusion of the LAD and 50% proximal cir cumflex artery. Also, it was found to have a 50% occlusion of proximal and mid RCA. Her LV ejection fraction on the echocardiogram was preserved to 55%-60%. She was started and discharged on aspirin, beta godfrey, MARY ANN inhibitor, statin, and Brilinta. The patient reports that she was still feeling tired after she went home and last night while she was sitting around the house, she felt that she is having the chest discomfort and was feeling that her heart is racing faster. She took her evening medications, but that did not help her symptoms. She c hecked her blood pressure, which was 170/94 and her heart rate was in the 90s. She proceeded to go t o the nearest emergency room and was found to have atrial fibrillation with rapid ventricular rate in the 130s. Over there, she received Cardizem and one dose of therapeutic Lovenox and was transferred to our facility. Since presentation here, she has converted to normal sinus rhythm, which is rate c ontrolled now. She still feels the chest discomfort and describes it as a burning sensation in the epigastrium, whic h she has been having for quite some time now. She also reported that she was feeling somewhat short of breath and has noted that she has some leg swelling in the last few days. Chest x-ray done in th e outside emergency room did not show any evidence of congestive heart failure. She has mildly eleva werner BNP at 180. Her initial troponin upon presentation was 0.489, which bumped up to 0.501 that is b ack down to 0.480 at this time. Her last troponin in our system is from 06/15/2017, which was 0.838, so it is still trending down and she has stable chronic kidney disease. She is right now hemodynamically stable and is being admitted for further evaluation. PAST MEDICAL HISTORY: 1. Coronary artery disease status post stenting to the distal left circumflex few days ago. 2. Three-vessel coronary artery disease as per cardiac catheterization on 06/14/2017. 3. Hypertension. 4. Chronic kidney disease stage 3. 5. Dyslipidemia. 6. Hypothyroidism. 7. Recent non-ST elevation myocardial infarction last week. 8. Moderate obesity. PAST SURGICAL HISTORY: 1. PCI as per above and cardiac catheterization on 06/14/2017. 2. Hysterectomy. 3. Left knee surgery. PSYCHIATRIC HISTORY: None. SOCIAL HISTORY: She is and lives with her in [facility]. No history of drug, t obacco or alcohol abuse. FAMILY HISTORY: Significant family history of coronary artery disease including her father and grand father. Both of her paternal grandparents had cardiac disease. ALLERGIES: PENICILLIN G. CURRENT MEDICATIONS: As per the most recent discharge, she is taking Brilinta 90 p.o. b.i.d., Cresto r 20 mg daily, omeprazole 40 mg q.48 hours, sublingual nitroglycerin as needed, multivitamin daily, C ozaar 50 mg at bedtime, Synthroid 75 mcg daily, Latanoprost eyedrops daily, Coreg 6.25 mg p.o. b.i.d. and aspirin 81 mg daily. REVIEW OF SYSTEMS: The following complete review of systems was negative, unless otherwise mentioned in the HPI or below: Constitutional: Weight loss or gain, ability to conduct usual activities. Skin: Rash, itching. Eyes: Double vision, pain. ENT/Mouth: Nose bleeding, neck stiffness, pain, tenderness. Cardiovascular: Palpitations, dyspnea on exertion, orthopnea. Respiratory: Shortness of breath, wheezing, cough, hemoptysis, fever or night sweats. Gastrointestinal: Poor appetite, abdominal pain, heartburn, nausea, vomiting, constipation, or diarr hea. Genitourinary: Urgency, frequency, dysuria, nocturia. Musculoskeletal: Pain, swelling. Neurologic/Psychiatric: Anxiety, depression. Allergy/Immunologic: Skin rash, bleeding tendency. LABORATORY DATA AND IMAGING: Her CBC today is unremarkable. Serum chemistry shows stable creatinine at 1.34. AST and ALT are mildly bumped to 62 and 98, respectively. Cardiac enzymes as per the HPI. BNP 180, normal CK-MB. A 12 lead EKG available for my review that was done at our facility shows s inus rhythm at 84 beats per minute. I do not have the EKG where it said that she was in atrial fibri llation, but she was in atrial fibrillation with RVR as per the ER physician's records. Currently, s he is in sinus rhythm. PHYSICAL EXAMINATION: VITAL SIGNS: Upon presentation, blood pressure 162/100, pulse of 91, respirations 20, saturating 100 % on room air, temperature 98.1. GENERAL: She appears somewhat uncomfortable, but in no acute distress. She is awake, alert, oriente d x3. HEENT: Mucous membrane is moist and pink. No oropharyngeal exudate or erythema. Head is normocepha lic, atraumatic. Pupils are equal, reactive to light and accommodation. Extraocular movement intact . NECK: Supple without any lymphadenopathy, JVD or bruit. CHEST: Clear to auscultation without any wheezing, rales or rhonchi. Rate and rhythm is regular wit hout any murmur, rubs or gallops. ABDOMEN: Soft, nontender, nondistended. She has no right upper quadrant or suprapubic tenderness. No guarding, rebound or rigidity. EXTREMITIES: Showed trace edema, which is nonpitting in nature extending from her feet upwards to he r mid calf. NEUROLOGIC: Nonfocal. SKIN: Free of any rashes or bruises. I feel warm and dry to touch. PSYCHIATRIC: Normal affect. IMPRESSION AND PLAN: 1. Atrial fibrillation with rapid ventricular rate. Unfortunately, I do not have any documentation of this, but this was as per the transferring emergency room records. Given the patient's extensive coronary arterial disease, this is not surprising. At this time, she is in sinus rhythm and rate con trol. She is on two antiplatelet medications, namely aspirin and Brilinta and we will continue that for now. She is at high risk per the CHADS 2 criteria and most likely will require anticoagulation. Also, she might benefit from Holter monitor or LINQ recorder as this seems to be like a paroxysmal a trial fibrillation. We will consult Cardiology for these recommendations. She has received 1 dose o f Lovenox at therapeutic dose in the transferring ER and at this time, we will resume her home medica tion and defer the decision for further anticoagulation to Cardiology. She is currently hemodynamica lly stable. 2. Coronary artery disease with recent PCI. Restart her aspirin, ARB, beta godfrey, Brilinta, and s tatin at this time. 3. Abdominal pain and mildly elevated transaminases. These symptoms are most likely secondary to ca rdiac disease. At this time, we will go ahead and order the right upper quadrant ultrasound to rule out gallbladder pathology. The patient is instructed to increase the dose of omeprazole to once a da y instead of once every other day for 3 months and if the benefit is not there, she would probably re quire a GI consult with EGD to rule out H. pylori, Hsieh's esophagus, esophagitis or gastritis. 4. Elevated BNP. The patient seems to be in mild fluid overload. We will try her on a small dose o f IV Lasix. She did have a preserved ejection fraction with no evidence of diastolic dysfunction on her most recent echocardiogram. I do not suspect any congestive heart failure at this time. 5. Elevated cardiac enzymes. These are already trending down. Most likely, she had mild bump due t o the atrial fibrillation episode with rapid ventricular rate. We will restart her home medications as above. 6. Morbid obesity. 7. Hypothyroidism. Resume Synthroid at this time. 8. Code status: Full code, discussed with the patient. 9. Deep venous thrombosis and gastrointestinal prophylaxis. DISPOSITION: Ms. Jones is currently being admitted for transient atrial fibrillation with rapid rodney tricular response episode. Further management will depend upon her clinical course and Cardiology re commendations. Currently, she is being admitted under observation status.
[2017-06-21] MEDS: TICAGRELOR 90 MG TABLET PO SCH ×2 (12:04→20:35)
[2017-06-21] MEDS: Carvedilol 6.25 MG TAB PO SCH ×2 (12:31→16:09)
--- NOTE | 2017-06-21 12:42 | ULT ---
SONOGRAM RIGHT UPPER QUADRANT: Date: 06/21/17 HISTORY: Abnormal liver function tests. FINDINGS: Gallbladder has a normal appearance without evidence of stones. Common duct is 0.5 cm. Liver is unrem arkable without focal mass or intrahepatic biliary dilatation. No free fluid. IMPRESSION: No sonographic evidence of gallstones or biliary obstruction. POS: [facility]
[2017-06-21 12:54] VITALS: BMI 40.4
[2017-06-21] MEDS: Mag-Al 1200 mg/1200 mg/30 ML UDCUP PO PRN ×2 (13:15→20:36)
[2017-06-21] MEDS ORDERED: Rosuvastatin 20 MG TAB PO SCH (21:00)
[2017-06-21] MEDS ORDERED: Multivit, Therapeutic 1 TAB PO SCH (21:00)
[2017-06-21] MEDS ORDERED: Losartan 25 MG TAB PO SCH (21:00)
[2017-06-21] MEDS ORDERED: Latanoprost 0.005% Ophth Soln 2.5 ml Bottle EA EYE SCH (21:00)
[2017-06-22 04:52] LABS: #Eosinphils 0.4 thou/uL (0.0-0.7); #Lymphocytes 1.4 thou/uL (1.20-3.40); #Monocytes 0.5 thou/uL (0.11-0.59); #Neutrophils 2.9 thou/uL (1.40-6.50); %Basophils 0.9 % (0.0-1.0); %Eosinophils 6.8 % (0.0-10.0); %Monocytes 9.6 % (0.0-10.0); %Neutrophils 55.7 % (42.0-75.0); Hemoglobin 11.7 g/dL (12.0-16.0); Mean Corpuscular HGB CONC 33.8 g/dL (32.0-36.0); Mean Corpuscular Hemoglobin 30.7 pg (27.0-31.0); Mean Corpuscular Volume 90.7 fl (81.0-99.0); Mean Platelet Volume 7.8 fL (7.4-10.4); Platelet Count 219 thou/uL (130-400); RBC Distribution Width 11.8 % (11.5-14.5); Red Blood Cell (RBC) Count 3.82 mill/uL (4.20-5.40); White Blood Cell (WBC) Count 5.3 thou/uL (4.8-10.8)
[2017-06-22 05:03] LABS: Anion Gap 12 mmol/L (10-20); BUN (Urea Nitrogen) 14 mg/dL (9.8-20.1); Calc. Creatinine Clearance 67 mL/min (70-130); Calcium 9.1 mg/dL (7.8-10.44); Carbon Dioxide 30 mmol/L (23-31); Chloride 103 mmol/L (98-107); Estimated GFR-MDRD 39; Glucose 94 mg/dL (80-115); Potassium 3.7 mmol/L (3.5-5.1); Sodium 141 mmol/L (136-145)
[2017-06-22] MEDS ORDERED: Levothyroxine Sodium 75 MCG TAB PO SCH (06:00)
[2017-06-22] MEDS: TICAGRELOR 90 MG TABLET PO SCH (09:24)
[2017-06-22] MEDS: Carvedilol 6.25 MG TAB PO SCH (09:25)
[2017-06-22] MEDS: Mag-Al 1200 mg/1200 mg/30 ML UDCUP PO PRN (09:25)
--- NOTE | 2017-06-22 09:30 | PDOC.CTH ---
Cardiology Progress Note - Subjective The pt seen and examined. No overnight events. No cardiac complaints. She felt palpitation, SOB, sudden fatigue prior to presenting to ER for Afib. - Objective Vital Signs Temp Pulse Resp BP Pulse Ox 06/22/17 09:24 77 06/22/17 07:56 98.0 F 56 L 18 127/58 L 96 06/22/17 04:12 98.0 F 63 14 96/50 L 95 06/22/17 02:17 96 06/21/17 23:22 65 14 116/63 Weight 230 lb 9.6 oz 06/21/17 06/22/17 06/23/17 06:59 06:59 06:59 Intake Total 1050 Output Total 1400 Balance -350 - Physical Examination General/Neuro: alert & oriented x3 Neck: no JVD present Lungs: CTA Heart: RRR Abdomen: soft Extremities: other: (No edema) - Telemetry Telemetry Rhythm: SR 70-80s - Labs Result Diagrams: 06/22/17 04:03 06/22/17 04:03 Troponin/CKMB CK-MB (CK-2) 1.8 ng/mL (0-6.6) 06/21/17 01:36 Troponin I 0.480 ng/mL (< 0.028) H* 06/21/17 07:35 - Assessment/Plan 1. New-onset Afib with RVR - Remains in NSR with HR 70-80s. On Diltiazem 120mg daily, coreg BID, ASA 81mg; [id number] score 3 (HTN, age 65-74yo, and female). 2. 3V CAD with Hx of Stent x2 in 05/2017 - Stable with Coreg, Brillinta, and ASA 81mg; cont. monitor on tele 3. HTN - stable with current medication 4. CKD stage 3 - stable; cont. to monitor 5. Hyperlipidemia - on Statin 6. Hypothyroidism - on thyroid med; managed by PCP 7. Obese -weight management education given to the pt and family MAR reviewed * The pt stable to d/c home today. The pt will go home with Diltiazem, Coreg, ASA 81mg, Brillinta. Also 3wk EVR monitor will send to the pt's address. * The pt will f/u with Dr Rivera' office within 4-6wks after EVR is done. Review of Systems - Review of Systems Constitutional: reports: no symptoms reported EENTM: reports: no symptoms reported Respiratory: reports: no symptoms reported Cardiac (ROS): reports: no symptoms reported ABD/GI: reports: no symptoms reported : reports: no symptoms reported Musculoskeletal: reports: no symptoms reported
[2017-06-22 12:18] VITALS: BP 105/55; TEMP 97.7
--- NOTE | 2017-06-22 20:40 | DIS ---
DATE OF ADMISSION: 06/21/2017 DATE OF DISCHARGE: 06/22/2017 CONDITION AT THE TIME OF DISCHARGE: Stable and improved. DISCHARGE DISPOSITION: Home. PRIMARY CARE PHYSICIAN: Dr. Dangelo. PRIMARY KNITTED GARMENT FINISHER: Dr. Katie Rivera. PROCEDURES DONE IN THE HOSPITAL: Abdominal ultrasound, which is unremarkable. There is no gallbladd er stone or biliary obstruction. CONSULTATIONS INHOUSE: Include Cardiology, Dr. Rivera. DISCHARGE DIAGNOSES: 1. Paroxysmal atrial fibrillation with rapid ventricular response, resolved. 2. Three-vessel coronary artery disease, status post stenting x2 on 05/2017. 3. Hypertension. 4. Chronic kidney disease, stage 3. 5. Dyslipidemia. 6. Hypothyroidism. 7. Moderate obesity. DISCHARGE MEDICATIONS: Resume home medications as per the HPI. New medications: Cardizem-CD 120 mg daily. The patient will continue her beta godfrey, statin, aspirin and losartan at this time. She is instructed to increase her omeprazole to once a day for symptoms of heartburn instead of once ever y 2 days. HISTORY OF PRESENTING ILLNESS: Ms. Jones is a 67-year-old female who was recently discharged 2 days ago by myself after she has sustained a non-ST elevation NE requiring catheterization and stenting, who came back to the emergency room with complaints of palpitations and chest pressure. She was init ially brought to the outside Emergency Room in [place], [place] where she was found to be in atrial f ibrillation with RVR. She was given Cardizem, which helped convert her and she was transferred to [facility] emergency room for further evaluation. She was also given 1 dose of Lovenox in the outside emergen cy room. She was admitted for further evaluation and Cardiology recommendations. Please see admissi on history and physical for further details. HOSPITAL COURSE: The patient had quite stable hospital course. She did not go back into atrial fibr illation throughout her hospitalization, remained in sinus rhythm and asymptomatic. Cardiology evalu ated the patient and she was started on Cardizem along with continuation of the rest of her home medi cation including aspirin, Coreg, losartan, statin, and Brilinta. Because she never went back into atrial fibrillation, it was decided that she would benefit from an e xternal monitor and this will be provided by the Cardiology team and will be delivered to her home. As of now, she is cleared for discharge by Cardiology team and is hemodynamically stable and is eager to go home and is asymptomatic. She will be discharged home with outpatient followup. As above, marychuy roberts medication is Cardizem for rate control. At this time, Cardiology is choosing not to start her on any chronic anticoagulation and this will be further discussed among them in the clinic. She is to c ontinue Brilinta and aspirin for now. Because of the patient's complaint of heartburn and acid reflux and epigastric pain, she underwent ab dominal ultrasound to rule out gallbladder pathology and it was negative. Most likely she is sufferi ng from GERD or gastritis. The patient is instructed to up her proton pump inhibitor to once a day f or at least 1 month and if her symptoms do not improve in 2-3 months, to seek a Gastroenterology refe rral from her primary care physician for possible endoscopy and rule out H. pylori and Hsieh's esop hagus. PHYSICAL EXAMINATION: She was seen and examined prior to discharge. VITAL SIGNS: Her vital signs today include temperature 98, heart rate 77, respirations 18, saturatin g 96% on room air, blood pressure 127/58. GENERAL: She does appear somewhat tired and complains of feeling tired and cold in the hands. Other bishop, no acute distress, awake, alert, oriented x3. CHEST: Clear to auscultation without any wheezing, rales or rhonchi. Rate and rhythm is regular wit hout any murmur, rubs or gallops. ABDOMEN: Obese, soft, nontender, nondistended. Discharge plan was discussed with the patient. Prescriptions were provided. The patient's a nd patient verbalized understanding. They will follow up with primary care physician and Cardiology in the outpatient setting.
--- NOTE | 2017-06-23 12:41 | CON ---
DATE OF CONSULTATION: 06/21/2017 INDICATION FOR CONSULTATION: A 67-year-old female with new onset atrial fibrillation with rapid vent ricular response. HISTORY OF PRESENT ILLNESS: This very unfortunate 67-year-old female who was in the hospital last we ekend and then proceeded with cardiac catheterization on Friday and underwent angioplasty and stent placement to left circumflex. She was found to have disease in the other vessels which was not felt to be significant and was not felt that she needs to undergo further stenting or bypass surgery at at time. She did have a small obtuse marginal branch, it was 100% occluded, we were unable to open t hat branch for the left circumflex requires stenting and this was performed without any complications or difficulties. At that time, she also was found to have 50% stenosis of the left anterior descend ing artery and 50% stenosis of the proximal mid right coronary artery, well preserved ejection fracti on of 55-60%. She did well after being discharged, was on aspirin, beta blockers, MARY ANN inhibitors, st atins, and Brilinta. Last night, she did not feel very well and took her heart rate and noted it was getting increasingly was in the 90s, eventually continued to increase upwards and the blood pressure also. She was in the emergency room and was found to be in atrial fibrillation with rapid ventricul ar response. She was then transferred to our facility for further evaluation and treatment. During the time of the atrial fibrillation, she did not have chest pain, but she did complain of epigastric discomfort and has some tenderness in the same area which she has had for some time now. When she ar rived here, the cardiac enzymes are still indeterminate. They may be trending downwards from her pre vious non-ST segment elevation myocardial infarction that she suffered last week and her troponin I o f 0.489 increased up to 0.5 and is back down now to 0.48. Her BNP was 180, which is not significantl y elevated. She is feeling much better at this time. She was given IV diltiazem in the emergency ro om at [facility] where she was then converted back to normal sinus rhythm. Since being admitted here, I have not seen any evidence of atrial fibrillation and she has remained stable. PAST MEDICAL HISTORY: Significant for the coronary artery disease, angioplasty, stent placed in the left circumflex, chronic kidney disease, hypertension, dyslipidemia, hypothyroidism, evidence of a no n-ST segment elevation myocardial infarction a week ago, morbid obesity. She has had hysterectomy an d left knee surgery. PSYCHIATRIC HISTORY: None. SOCIAL HISTORY: She lives with her . She has children who are alive and well. There is no a lcohol or tobacco abuse. FAMILY HISTORY: Positive for coronary artery disease in her family with her father and her grandfath er. ALLERGIES: She is allergic to PENICILLIN. MEDICATIONS: Include Brilinta, Crestor, omeprazole, nitroglycerin p.r.n., Cozaar, Synthroid, latanop kaity, and Coreg as well as aspirin 81 mg a day. REVIEW OF SYSTEMS: Twelve point review of systems unremarkable except as noted in the history of pre sent illness. She was doing well until she developed the atrial fibrillation. She has been feeling well, had been walking without other problems. LABORATORY DATA: Shows that the troponin I as noted above. Her creatinine is 1.35 with a BUN of 15, hemoglobin is 12.8. PHYSICAL EXAMINATION: GENERAL: Reveals a well-developed, well-nourished female who is somewhat overweight. VITAL SIGNS: Her blood pressure is 207/94 repeated was in the 170s systolically, respiratory rate is 20, heart rate is 55 and regular. She is afebrile. HEENT: Shows head to be normocephalic, atraumatic. Carotid pulses are present. There were no bruit s. CHEST: Clear to auscultation without rales, rhonchi or wheezing. CARDIOVASCULAR: Reveals a regular rate and rhythm shows normal S1, S2. There is no S3, S4. There w ere no significant murmurs, heaves, thrills, bruits or rubs. ABDOMEN: Soft. She has tenderness in the epigastric area. She has positive bowel sounds. EXTREMITIES: Show no clubbing, cyanosis or edema. NEUROLOGIC: She appears to be fully intact. She has normal strength, normal tone. Pedal pulses are present. Neurologically, she has no significant abnormalities. SKIN: Warm and dry. DIAGNOSTIC STUDIES: EKG shows a normal sinus rhythm without evidence of acute changes. The original EKG did show atrial fibrillation when she was at [facility]. There were no EKG change s otherwise at this time. She did have one isolated PVC on the study. IMPRESSION: 1. New-onset atrial fibrillation with rapid ventricular response which converted to normal sinus rhy thm with diltiazem. We will continue this medicine p.o. and see whether or not this will control her rhythm. If she develops further episodes of atrial fibrillation, we will need to use more oral anti arrhythmic medications such as Multaq, amiodarone, or flecainide in this lady or possibly even frederick bowens, but with her underlying coronary artery disease, I would be somewhat hesitant to do that at this t star, but can continue diltiazem. Her ejection fraction was within normal limits. At this time, we w ould continue medications that she has already taken aspirin and Brilinta and was decreased the dose of the aspirin to 81 mg a day and continue the Brilinta. If she has further episodes of atrial fibri llation, then we may need to start her on not only Brilinta and aspirin, but perhaps also Eliquis or some other oral anticoagulation. She was given Lovenox at this time. There is no evidence of bleedi ng. 2. History of coronary artery disease, which appears to be stable at this time. She has 3-vessel di sease, but this was not significant enough her to undergo bypass surgery or further intervention at t hat time, but in the future, she may need to undergo further angioplasty and stent placement or bypas s surgery. 3. History of morbid obesity. She should undergo dietary consultation perhaps. 4. Abdominal discomfort. This is obviously tenderness to palpation over the epigastric area. She m ay need to be seen by Gastroenterology as this may be early ulceration or even a hiatal hernia. I be lieve she did have an ultrasound of the abdomen performed here earlier today. This did not show any evidence of gallbladder problems or obstructions. She may need to be seen by Gastroenterology for an upper endoscopy. We will continue to follow the patient with you, but at this time, from a cardiac standpoint, she appears to be stable. The atrial fibrillation has resolved. I will start her on p.o . diltiazem, hopefully to maintain sinus rhythm.
--- NOTE | 2017-08-01 15:50 | EKG ---
Test Reason : Blood Pressure : / mmHG Vent. Rate : 084 BPM Atrial Rate : 084 BPM P-R Int : 196 ms QRS Dur : 080 ms QT Int : 348 ms P-R-T Axes : 052 006 050 degrees QTc Int : 411 ms Normal sinus rhythm ST abnormality, possible digitalis effect Abnormal ECG Confirmed by EMMA STEWART D.O. ([id number]), offline editor ROXANE BLOOM ([id number]) on 08/01/2017 3:50:00 PM Referred By: Confirmed By:EMMA STEWART D.O.
--- NOTE | 2017-08-01 15:50 | EKG ---
Test Reason : Blood Pressure : / mmHG Vent. Rate : 083 BPM Atrial Rate : 083 BPM P-R Int : 192 ms QRS Dur : 082 ms QT Int : 362 ms P-R-T Axes : 054 -01 041 degrees QTc Int : 425 ms Sinus rhythm with occasional Premature ventricular complexes Otherwise normal ECG Confirmed by EMMA STEWART D.O. ([id number]), online editor ROXANE BLOOM ([id number]) on 08/01/2017 3:50:01 PM Referred By: Confirmed By:EMMA STEWART D.O.
== END 2017-06-22 12:20 | disposition home or self-care (01) ==
LOC: ERS 01:26 → ERHOLD 04:56 → 2SW 11:25
PROVIDERS: ADMIT Internal Medicine; ATTEND Internal Medicine
DX: I48.0 Paroxysmal atrial fibrillation (principal); I25.10 Atherosclerotic heart disease of native coronary artery without angina pectoris; I12.9 Hypertensive chronic kidney disease with stage 1 through stage 4 chronic kidney disease, or unspecified chronic kidney disease; N18.3 Chronic kidney disease, stage 3 (moderate); E78.5 Hyperlipidemia, unspecified; E03.9 Hypothyroidism, unspecified; I21.4 Non-ST elevation (NSTEMI) myocardial infarction; R79.89 Other specified abnormal findings of blood chemistry; R74.8 Abnormal levels of other serum enzymes; E66.01 Morbid (severe) obesity due to excess calories; Z68.41 Body mass index [BMI] 40.0-44.9, adult; Z88.0 Allergy status to penicillin; Z79.82 Long term (current) use of aspirin; Z79.02 Long term (current) use of antithrombotics/antiplatelets; Z79.899 Other long term (current) drug therapy; Z95.5 Presence of coronary angioplasty implant and graft
CPT/HCPCS: 76705; 80048; 80053; 81003; 82550; 82553; 83880; 84484 ×2; 85025 ×2; 93005; 94760; 96374; 96375; 97139 ×2; 99285; G0378; 36415; J1650; J1940

== ENCOUNTER 2017-07-09 09:36 | Emergency (ER) | payer MEDICARE ==
[2017-07-09] MEDS ORDERED: Nitroglycerin 2% Ointment 1 INCH/1 GM Packet ONE (10:37)
[2017-07-09 11:00] LABS: #Eosinphils 0.4 thou/uL (0.0-0.7); #Lymphocytes 1.2 thou/uL (1.20-3.40); #Monocytes 0.4 thou/uL (0.11-0.59); #Neutrophils 3.9 thou/uL (1.40-6.50); %Basophils 0.7 % (0.0-1.0); %Eosinophils 6.5 % (0.0-10.0); %Lymphocytes 20.8 % (21.0-51.0); %Monocytes 6.9 % (0.0-10.0); %Neutrophils 65.1 % (42.0-75.0); Hemoglobin 13.1 g/dL (12.0-16.0); Mean Corpuscular HGB CONC 34.6 g/dL (32.0-36.0); Mean Corpuscular Hemoglobin 31.3 pg (27.0-31.0); Mean Corpuscular Volume 90.2 fl (81.0-99.0); Mean Platelet Volume 8.5 fL (7.4-10.4); Platelet Count 259 thou/uL (130-400); White Blood Cell (WBC) Count 5.9 thou/uL (4.8-10.8)
--- NOTE | 2017-07-09 11:18 | RAD ---
PORTABLE CHEST 1 VIEW: Date: 07/09/17 Time: 1053 hours HISTORY: Dyspnea. FINDINGS/IMPRESSION: The heart size is borderline. The lungs are well expanded without focal areas of consolidation, pneum othorax, randy pulmonary edema, or pleural effusions. POS: [facility]
[2017-07-09 11:24] LABS: ALT (SGPT) 31 U/L (8-55); AST (SGOT) 27 U/L (5-34); Alkaline Phosphatase 108 U/L (40-150); Anion Gap 12 mmol/L (10-20); BUN (Urea Nitrogen) 14 mg/dL (9.8-20.1); Bilirubin, Total 0.5 mg/dL (0.2-1.2); CK (CPK) 48 U/L (29-168); Calc. Creatinine Clearance 0 mL/min (70-130); Calcium 9.6 mg/dL (7.8-10.44); Carbon Dioxide 26 mmol/L (23-31); Chloride 106 mmol/L (98-107); Estimated GFR-MDRD 45; Globulin 3.7 g/dL (2.4-3.5); Glucose 127 mg/dL (80-115); Lipase 18 U/L (8-78); Magnesium 2.1 mg/dL (1.6-2.6); Potassium 4.2 mmol/L (3.5-5.1); Protein, Total 7.7 g/dL (6.0-8.3); Sodium 140 mmol/L (136-145)
[2017-07-09 11:25] LABS: CKMB 0.7 ng/mL (0-6.6); Troponin I Less than 0.010 ng/mL (< 0.028)
[2017-07-09] MEDS ORDERED: Pantoprazole 40 MG VIAL ONE (11:57)
[2017-07-09] MEDS ORDERED: Mag-Al 1200 mg/1200 mg/30 ML UDCUP ONE ×2 (11:57→12:12)
== END 2017-07-09 12:39 | disposition home or self-care (01) ==
LOC: ERS 09:36
DX: R06.02 Shortness of breath (principal); R53.1 Weakness; E03.9 Hypothyroidism, unspecified; K21.9 Gastro-esophageal reflux disease without esophagitis; N18.3 Chronic kidney disease, stage 3 (moderate); E78.5 Hyperlipidemia, unspecified; I10 Essential (primary) hypertension; E66.9 Obesity, unspecified; J45.909 Unspecified asthma, uncomplicated; Z79.899 Other long term (current) drug therapy; Z79.82 Long term (current) use of aspirin
CPT/HCPCS: 71045; 80053; 82553; 83690; 83735; 83880; 84484; 85025; 93005; 96374; C9113

== ENCOUNTER 2018-01-28 16:50 | Emergency (ER) | payer MEDICARE ==
[2018-01-28 17:32] LABS: #Eosinphils 0.4 thou/uL (0.0-0.7); #Lymphocytes 1.6 thou/uL (1.20-3.40); #Monocytes 0.6 thou/uL (0.11-0.59); #Neutrophils 3.1 thou/uL (1.40-6.50); %Basophils 0.7 % (0.0-1.0); %Eosinophils 6.7 % (0.0-10.0); %Lymphocytes 27.1 % (21.0-51.0); %Monocytes 10.7 % (0.0-10.0); %Neutrophils 54.8 % (42.0-75.0); Hemoglobin 13.7 g/dL (12.0-16.0); Mean Corpuscular HGB CONC 32.3 g/dL (32.0-36.0); Mean Corpuscular Hemoglobin 30.2 pg (27.0-31.0); Mean Corpuscular Volume 93.5 fL (78.0-98.0); Platelet Count 246 thou/uL (130-400); RBC Distribution Width 11.3 % (11.5-14.5); Red Blood Cell (RBC) Count 4.53 mill/uL (4.20-5.40); White Blood Cell (WBC) Count 5.7 thou/uL (4.8-10.8)
[2018-01-28] MEDS ORDERED: Lorazepam 2 MG/ML VIAL ONE (17:34)
[2018-01-28] MEDS ORDERED: Methocarbamol 500 MG TAB PO SCH (17:45)
[2018-01-28 17:53] LABS: ALT (SGPT) 17 U/L (8-55); AST (SGOT) 22 U/L (5-34); Albumin 4.1 g/dL (3.4-4.8); Alkaline Phosphatase 88 U/L (40-150); Anion Gap 12 mmol/L (10-20); BUN (Urea Nitrogen) 13 mg/dL (9.8-20.1); Bilirubin, Total 0.6 mg/dL (0.2-1.2); CK (CPK) 44 U/L (29-168); Calc. Creatinine Clearance 0 mL/min (70-130); Calcium 9.7 mg/dL (7.8-10.44); Carbon Dioxide 27 mmol/L (23-31); Chloride 105 mmol/L (98-107); Estimated GFR-MDRD 50; Globulin 3.5 g/dL (2.4-3.5); Glucose 99 mg/dL (80-115); Potassium 4.4 mmol/L (3.5-5.1); Protein, Total 7.6 g/dL (6.0-8.3); Sodium 140 mmol/L (136-145)
[2018-01-28 18:01] LABS: CKMB 0.8 ng/mL (0-6.6); Troponin I Less than 0.010 ng/mL (< 0.028)
--- NOTE | 2018-01-28 19:02 | RAD ---
AP VIEW CHEST 01/28/18 HISTORY: Increasing lethargy, weakness. AP view chest is obtained on 01/28/18. Comparison made to previous exam from 07/09/17. AP view chest demonstrates some mild pulmonary vascular congestion. No evidence of effusions, pneumon ia, or pneumothorax seen. IMPRESSION: Unremarkable AP view chest. POS: [facility]
--- NOTE | 2018-01-30 17:05 | EKG ---
Test Reason : WEAKNESS Blood Pressure : / mmHG Vent. Rate : 056 BPM Atrial Rate : 056 BPM P-R Int : 176 ms QRS Dur : 068 ms QT Int : 398 ms P-R-T Axes : 002 -03 025 degrees QTc Int : 384 ms Sinus bradycardia with occasional Premature ventricular complexes Minimal voltage criteria for LVH, may be normal variant Borderline ECG Confirmed by LAURA TOVAR ([id number]), assistant film editor ROXANE BLOOM ([id number]) on 01/30/2018 5:04:30 PM Referred By: Confirmed By:LAURA TOVAR
== END 2018-01-28 18:59 | disposition home or self-care (01) ==
LOC: ERS 16:50
DX: M54.6 Pain in thoracic spine (principal); E03.9 Hypothyroidism, unspecified; K21.9 Gastro-esophageal reflux disease without esophagitis; E78.5 Hyperlipidemia, unspecified; I12.9 Hypertensive chronic kidney disease with stage 1 through stage 4 chronic kidney disease, or unspecified chronic kidney disease; E66.9 Obesity, unspecified; N18.3 Chronic kidney disease, stage 3 (moderate); Z79.899 Other long term (current) drug therapy; Z79.82 Long term (current) use of aspirin; Z79.891 Long term (current) use of opiate analgesic
CPT/HCPCS: 71045; 80053; 82550; 82553; 84484; 85025; 93005; 96374; J2060

== ENCOUNTER 2018-02-19 12:11 | Emergency (ER) | payer MEDICARE ==
[2018-02-19 13:32] LABS: #Eosinphils 0.4 thou/uL (0.0-0.7); #Lymphocytes 1.3 thou/uL (1.20-3.40); #Monocytes 0.4 thou/uL (0.11-0.59); #Neutrophils 4.7 thou/uL (1.40-6.50); %Basophils 0.6 % (0.0-1.0); %Eosinophils 5.4 % (0.0-10.0); %Lymphocytes 19.2 % (21.0-51.0); %Monocytes 6.1 % (0.0-10.0); %Neutrophils 68.6 % (42.0-75.0); Hemoglobin 15.1 g/dL (12.0-16.0); Mean Corpuscular HGB CONC 33.4 g/dL (32.0-36.0); Mean Corpuscular Hemoglobin 30.9 pg (27.0-31.0); Mean Corpuscular Volume 92.4 fL (78.0-98.0); Mean Platelet Volume 8.1 fL (7.4-10.4); Platelet Count 270 thou/uL (130-400); RBC Distribution Width 11.1 % (11.5-14.5); Red Blood Cell (RBC) Count 4.91 mill/uL (4.20-5.40); White Blood Cell (WBC) Count 6.9 thou/uL (4.8-10.8)
--- NOTE | 2018-02-19 13:48 | RAD ---
AP VIEW CHEST: Date: 02/19/18 HISTORY: Shortness of breath. Shakiness. FINDINGS: Comparison made to previous exam from 01/28/18. AP view of chest demonstrates mild S-shaped scoliosis. The lungs are well aerated. No evidence of act claritza intrathoracic disease seen. No evidence of effusions, pneumonia, or pneumothorax seen. IMPRESSION: Unremarkable AP view of chest. POS: [facility]
[2018-02-19 13:56] LABS: ALT (SGPT) 16 U/L (8-55); AST (SGOT) 19 U/L (5-34); Albumin 4.3 g/dL (3.4-4.8); Alkaline Phosphatase 103 U/L (40-150); Anion Gap 7 mmol/L (10-20); BUN (Urea Nitrogen) 14 mg/dL (9.8-20.1); Bilirubin, Total 0.6 mg/dL (0.2-1.2); Calc. Creatinine Clearance 0 mL/min (70-130); Calcium 10.1 mg/dL (7.8-10.44); Carbon Dioxide 33 mmol/L (23-31); Chloride 104 mmol/L (98-107); Estimated GFR-MDRD 47; Globulin 3.7 g/dL (2.4-3.5); Glucose 110 mg/dL (80-115); Potassium 4.3 mmol/L (3.5-5.1); Sodium 140 mmol/L (136-145)
--- NOTE | 2018-02-21 12:18 | EKG ---
Test Reason : Blood Pressure : / mmHG Vent. Rate : 056 BPM Atrial Rate : 056 BPM P-R Int : 174 ms QRS Dur : 084 ms QT Int : 412 ms P-R-T Axes : -05 012 041 degrees QTc Int : 397 ms Sinus bradycardia Otherwise normal ECG Confirmed by BERNA MADDOX, MARIA ALEJANDRA Garza ([id number]), industrial editor LUIS ALBERTO WASHINGTON ([id number]) on 02/21/2018 12:18:03 PM Referred By: Confirmed By:MARIA ALEJANDRA CORONEL MD
== END 2018-02-19 16:35 | disposition home or self-care (01) ==
LOC: ERS 12:11
DX: R06.02 Shortness of breath (principal); R53.1 Weakness; R11.0 Nausea; R68.83 Chills (without fever); T44.7X5A Adverse effect of beta-adrenoreceptor antagonists, initial encounter; E03.9 Hypothyroidism, unspecified; K21.9 Gastro-esophageal reflux disease without esophagitis; N18.3 Chronic kidney disease, stage 3 (moderate); E78.5 Hyperlipidemia, unspecified; I12.9 Hypertensive chronic kidney disease with stage 1 through stage 4 chronic kidney disease, or unspecified chronic kidney disease; E66.9 Obesity, unspecified; J45.909 Unspecified asthma, uncomplicated; Z79.899 Other long term (current) drug therapy; Z79.82 Long term (current) use of aspirin
CPT/HCPCS: 36415; 71045; 80053; 84484; 85025; 93005

== ENCOUNTER 2018-05-14 14:30 | Inpatient (IN) | payer MEDICARE ==
[2018-06-11 13:15] VITALS: BMI 36.6
[2018-06-16 11:03] LABS: #Basophils 0.1 thou/uL (0.0-0.2); #Eosinphils 0.4 thou/uL (0.0-0.7); #Lymphocytes 1.4 thou/uL (1.20-3.40); #Monocytes 0.4 thou/uL (0.11-0.59); #Neutrophils 3.1 thou/uL (1.40-6.50); %Basophils 0.9 % (0.0-1.0); %Eosinophils 6.9 % (0.0-10.0); %Lymphocytes 25.5 % (21.0-51.0); %Monocytes 8.2 % (0.0-10.0); %Neutrophils 58.4 % (42.0-75.0); Hemoglobin 13.3 g/dL (12.0-16.0); Mean Corpuscular HGB CONC 33.1 g/dL (32.0-36.0); Mean Corpuscular Hemoglobin 30.8 pg (27.0-31.0); Mean Corpuscular Volume 93.2 fL (78.0-98.0); Platelet Count 228 thou/uL (130-400); RBC Distribution Width 11.9 % (11.5-14.5); Red Blood Cell (RBC) Count 4.32 mill/uL (4.20-5.40); White Blood Cell (WBC) Count 5.4 thou/uL (4.8-10.8)
[2018-06-16 11:18] LABS: Bilirubin Negative (Negative); Blood, Urine Negative (Negative); Clarity CLEAR (Clear); Glucose, Urine (Dipstick) Negative (Negative); Leukocyte Negative (Negative); Nitrite Negative (Negative); Protein, Urine (Dipstick) Negative (Neg-Trace); Specific Gravity, Urine 1.016 (1.002-1.036); pH, Urine 5.5 (5.0-9.0)
[2018-06-16 11:24] LABS: Bacteria/HPF None Seen HPF (None Seen); Hyaline Casts/LPF 0-3 HYALINE CAST LPF (0-3 Hyaline); Pathc Cast-AUWi Flag 0.13 (0-2.49); RBC/HPF 0-3 HPF (0-3); Squamous Epithelial 0-3 HPF (0-3); WBC/HPF 0-3 HPF (0-3)
[2018-06-16 11:32] LABS: Anion Gap 12 mmol/L (10-20); BUN (Urea Nitrogen) 18 mg/dL (9.8-20.1); Calc. Creatinine Clearance 0 mL/min (70-130); Calcium 9.7 mg/dL (7.8-10.44); Carbon Dioxide 27 mmol/L (23-31); Chloride 107 mmol/L (98-107); Estimated GFR-MDRD 50; Glucose 68 mg/dL (80-115); Potassium 4.2 mmol/L (3.5-5.1); Sodium 142 mmol/L (136-145)
--- NOTE | 2018-06-17 13:49 | HP ---
HISTORY OF PRESENT ILLNESS: The patient is a 68-year-old female with greater than 1 year history of problems with her right hip without injury. She initially presented with trochanteric bursitis and initially improved with cortisone injections, but then she subsequently developed progressive pain in the groin and hip joint area radiating towards her knee. X-rays reveal moderate degenerative arthritis and MRI scan reveals significant avascular necrosis. Approximately 1 year ago, she had a cardiac stent placed and has been on Plavix under the direction of Dr. Rivera. It was felt that she should be on this for a year before proceeding to any definitive surgical treatment of her hip. During this period of time, she has noticed progressive pain in the hip, almost to the point of capacitation, she said used a walker and requiring hydrocodone for pain. She is having difficulties walking, getting dressed, and sleeping. PAST MEDICAL HISTORY: As noted above. The patient has a chronic low back pain and degenerative changes on MRI scan. She has a history of hypertension, hypothyroidism, and previous MD and stent as mentioned above. She has been on Plavix, but has stopped this in anticipation of surgery on her right hip. MEDICATIONS: Her other medications include losartan, levothyroxine, Coreg, Crestor, low dose aspirin, Cartia, Nexium, latanoprost eye drops, timolol eye drops, p.r.n. nitroglycerin, Colace. ALLERGIES: SHE IS ALLERGIC TO PENICILLIN. FAMILY HISTORY: Otherwise unremarkable. SOCIAL HISTORY: Otherwise unremarkable. REVIEW OF SYSTEMS: Otherwise unremarkable. PHYSICAL EXAMINATION: GENERAL: Reveals a healthy heavy-set female. HEENT: Unremarkable. NECK: Supple. CHEST: Clear. HEART: Regular rate and rhythm. ABDOMEN: Soft and nontender. PELVIC: Deferred. RECTAL: Deferred. BREASTS: Deferred. EXTREMITIES: Pertinent findings related to the right hip. Leg lengths are equal. There is tenderness of the posterior hip and anterior hip and also greater trochanter. There is a right antalgic gait as she was spending a significant amount of time in a wheelchair recently. She has decreased range of motion of the hip and groin pain with internal rotation. There is crepitus with hip motion. NEUROVASCULAR: Intact. Straight leg raising is negative. DIAGNOSTIC STUDIES: X-rays of the right hip now reveal [id number] collapse of the right hip with collapse of the head of the femur with marked change from previous x-rays. IMPRESSION: 1. Degenerative arthritis and avascular necrosis, right hip. 2. Atherosclerotic cardiovascular disease, status post cardiac stent. 3. History of hypertension. 4. History of thyroid replacement. 5. Degenerative arthritis, lumbar spine. PLAN: Right total hip replacement. The nature of the surgery, length of recovery, and potential complications such as infection, loss of motion, incomplete relief, neurovascular injury, thromboembolic phenomena, leg length discrepancy, possible transfusion, and need for revision discussed in detail. She has been seen and cleared for surgery by Dr. Rivera. Job ID: [id number]
[2018-06-22] MEDS ORDERED: Midazolam HCl 2 mg/2 ml Vial ONE (06:14)
[2018-06-22] MEDS ORDERED: Fentanyl 100 MCG/2 ML VIAL ONE ×3 (06:14→10:06)
[2018-06-22] MEDS ORDERED: Vancomycin HCl 1.5 GM in Sodium Chloride 0.9% 250 ML 300 ML IVPB SCH ×2 (06:15→19:00)
[2018-06-22] MEDS ORDERED: Sodium Chloride 0.9% 100 ML ONE (06:17)
[2018-06-22] MEDS ORDERED: Tranexamic Acid 1,000 MG/10 ML VIAL ONE ×2 (06:17→09:24)
[2018-06-22] MEDS ORDERED: Levofloxacin 500 mg/D5W 100 ml Premix Bag ONE (06:17)
[2018-06-22] MEDS ORDERED: Scopolamine 1.5 mg/72 hour Patch ONE (06:58)
[2018-06-22] MEDS ORDERED: Ropivacaine 0.2% HCl/PF 20 ML ONE (07:30)
[2018-06-22] MEDS ORDERED: diphenhydrAMINE 25 MG CAP PO PRN ×2 (07:45→10:54)
[2018-06-22] MEDS ORDERED: Promethazine HCl 25 MG SUPP PR PRN (07:45)
[2018-06-22] MEDS ORDERED: Bupivacaine 0.25% 10 ML VIAL EPIDURAL PRN (07:45)
[2018-06-22] MEDS ORDERED: diphenhydrAMINE 50 MG/ML VIAL IM PRN (07:45)
[2018-06-22] MEDS ORDERED: traMADol HCl 50 MG TAB PO PRN ×3 (07:45→10:54)
[2018-06-22] MEDS ORDERED: Zolpidem Tartrate 5 MG TAB PO PRN ×2 (07:45→10:54)
[2018-06-22] MEDS ORDERED: Hydrocerin (Eucerin) Cream 120 gm Jar TOP PRN (07:45)
[2018-06-22] MEDS ORDERED: Promethazine HCl 25 MG/ML VIAL IM PRN (07:45)
[2018-06-22] MEDS ORDERED: HYDROcodone/Acetaminophen 5/325 mg Tablet PO PRN ×2 (07:45)
[2018-06-22] MEDS ORDERED: diphenhydrAMINE 50 MG/ML VIAL IVP PRN (07:45)
[2018-06-22] MEDS ORDERED: Ketorolac Tromethamine 30 MG/ML VIAL IVP PRN (07:45)
[2018-06-22] MEDS ORDERED: Naloxone HCl 0.4 mg/ml Vial IVP PRN (07:45)
[2018-06-22] MEDS ORDERED: Ondansetron PF 4 MG/2 ML Vial IVP PRN ×2 (07:45→11:00)
[2018-06-22] MEDS ORDERED: Naloxone HCl 0.4 mg/ml Vial IV PRN (07:45)
[2018-06-22] MEDS ORDERED: Bupivacaine 0.25% HCL 30 ML VIAL ONE (09:27)
[2018-06-22] MEDS ORDERED: Tranexamic Acid 1,000 MG in Sodium Chloride 0.9% 100 ML IVPB SCH ×2 (09:30→12:00)
[2018-06-22] MEDS ORDERED: Fentanyl 5 mcg/Bup 0.075% Cadd 100 ML EPIDURAL ONE (09:49)
--- NOTE | 2018-06-22 09:51 | RAD ---
FXR Hip Rt 2-3 View: 06/22/2018 9:23 AM CLINICAL INDICATION: Post operative right hip evaluation COMPARISON: None. FINDINGS: Fracture:No fracture. Right hip prosthesis is present, without hardware complication. Incidental findings:None of significance. IMPRESSION: 1. No acute osseous abnormality of the postoperative right hip.
[2018-06-22] MEDS ORDERED: Acetaminophen 1,000 MG in Premix Bag 1 BAG IVPB SCH (10:15)
[2018-06-22] MEDS ORDERED: Acetaminophen 325 MG TAB PO PRN (10:54)
[2018-06-22] MEDS ORDERED: Fentanyl 100 MCG/2 ML VIAL SLOW IVP PRN ×2 (10:54)
[2018-06-22] MEDS ORDERED: Promethazine HCl 25 MG/ML VIAL SLOW IVP PRN (10:54)
[2018-06-22] MEDS ORDERED: HYDROcodone/Acetaminophen 10/325 mg Tablet PO PRN (11:00)
[2018-06-22] MEDS: Ketorolac Tromethamine 30 MG/ML VIAL IVP SCH ×3 (12:20→23:02)
[2018-06-22] MEDS: Sodium Chloride 0.9% 1,000 ML IV SCH ×2 (13:49→21:02)
[2018-06-22] MEDS ORDERED: Ondansetron PF 4 MG/2 ML Vial ONE (15:22)
[2018-06-22] MEDS ORDERED: Rocuronium Bromide 10 MG/ML (10ML VIAL) ONE (15:22)
[2018-06-22] MEDS ORDERED: Lidocaine 1% PF 5 ML VIAL ONE (15:22)
[2018-06-22] MEDS ORDERED: Ketorolac Tromethamine 30 MG/ML VIAL ONE (15:22)
[2018-06-22] MEDS ORDERED: Glycopyrrolate 0.2 MG/ML 5 ML SYRINGE ONE (15:22)
[2018-06-22] MEDS ORDERED: PROPOFOL 200 MG/20 ML VIAL ONE (15:22)
[2018-06-22] MEDS ORDERED: ePHEDrine 50 MG/ML VIAL ONE (15:22)
--- NOTE | 2018-06-22 15:44 | OP ---
DATE OF PROCEDURE: 06/22/2018 BALLET DANCER: Jorge Park PA-C ANESTHESIA: General plus epidural. PREOPERATIVE DIAGNOSES: Degenerative arthritis and avascular necrosis, right hip. POSTOPERATIVE DIAGNOSES: Degenerative arthritis and avascular necrosis, right hip. PROCEDURE PERFORMED: Right total hip replacement with uncemented [place] Trident PSL acetabular component 50 mm with X3 polyethylene insert and uncemented [place] Accolade femoral stem size #2 with 132-degree neck angle trunnion and Heath 36 mm delta ceramic femoral head standard neck length. DESCRIPTION OF PROCEDURE: After satisfactory anesthesia was induced in supine position, sequential compression device was placed on the nonoperative leg throughout the procedure. The patient was then placed in lateral decubitus position. This position was held with a earl bag. The patient's right hip was then prepped and draped in routine sterile fashion. The hip was approached through a lateral curvilinear incision, centered over the greater trochanter, carried down through the subcutaneous tissues. Bleeding points were controlled with Bovie cautery. IT band and gluteal fascia were split in line with skin incision. A direct lateral approach to the hip joint was accomplished by dividing the anterior third of the gluteus medius and minimus tendons with Bovie cautery by reflecting this as a single flap anteromedially along with the vastus lateralis. Anterior hip capsulectomy was performed with hip dislocated anteriorly. There was marked degenerative arthritis of the hip with evidence of collapse of the femoral head. The femoral neck was osteotomized with oscillating saw using a trial prosthesis as a guide. The acetabulum was exposed and cleaned of all soft tissue and debris. The acetabulum was reamed down to bleeding subchondral bone with a power reamers to a total of 50 mm. It was felt that a 50 mm Trident PSL outer shell could be placed in a press-fit fashion. The permanent outer shell was hammered in position. There was good fit and stability of the outer shell and the permanent X3 polyethylene insert was snapped in position. The proximal femur was exposed. It was opened with a box osteotome and then rasped in sequence to accept a #2 Accolade femoral rasp. Trial reduction with 132 degree neck angle trunnion and a 36 mm standard neck length head. Femoral head gave appropriate size, fit, and stability. The trial components were removed. The hip was copiously irrigated with pulsatile lavage. The permanent #2 Accolade femoral stem was then hammered in position. There was again good fit and stability. The permanent 36 mm standard neck length delta ceramic femoral head was then placed on the trunnion and hip again reduced and found to be stable. The wound was again copiously irrigated with the pulsatile lavage. The abductors were repaired with interrupted #2 Vicryl. The IT band and gluteal fascia were closed with interrupted #2 Vicryl and running #2 Quill. Subcutaneous tissues were closed with a running 0 Quill suture. The skin was closed with running subcuticular 3-0 Monoderm and SurgiSeal skin adhesive. Sterile bulky dressing was applied and the patient turned to the supine position and a pillow placed between her legs. Sequential compression device was placed on the operated leg and she was awakened, taken to the recovery room in stable condition. There were no apparent intraoperative complications. The estimated blood loss was 200 mL. Job ID: [id number]
[2018-06-22] MEDS: HYDROcodone/Acetaminophen 10/325 mg Tablet PO PRN ×2 (16:17→21:04)
[2018-06-22] MEDS ORDERED: cloNIDine 0.1 MG TAB PO PRN (21:00)
[2018-06-22] MEDS: Losartan 25 MG TAB PO SCH (21:05)
[2018-06-22] MEDS: Senokot S 8.6-50 MG TAB PO SCH (21:05)
[2018-06-22] MEDS: Ferrous Gluconate 324 MG TAB PO SCH (21:06)
[2018-06-22] MEDS: Dorzolamide HCl 2% Ophth Soln 10 ml Bottle EA EYE SCH (21:06)
[2018-06-22] MEDS: Aspirin 81 mg Enteric Coated Tablet PO SCH (21:06)
--- NOTE | 2018-06-22 21:19 | PDOC.PN ---
- Subjective Encounter Start Date: 06/22/18 Encounter Start Time: 13:00 Patient seen and examined for med mngt. Pain controlled. No CP/SOB. No new complaints. No overnight events - Objective MAR Reviewed: Yes Vital Signs & Weight: Vital Signs (12 hours) Temp Pulse Resp BP Pulse Ox 06/22/18 19:57 99 06/22/18 19:56 97.5 F L 80 16 138/78 99 06/22/18 15:35 98.8 F 93 16 128/77 94 L 06/22/18 10:20 97.4 F L 55 L 16 149/74 H 100 Weight Weight 200 lb I&O: 06/21/18 06/22/18 06/23/18 06:59 06:59 06:59 Intake Total 1700 Output Total 1100 Balance 600 Result Diagrams: 06/23/18 04:22 06/16/18 10:43 EKG Reviewed by me: Yes (SR) Phys Exam - Physical Examination Constitutional: NAD Respiratory: no wheezing, no rhonchi Cardiovascular: RRR, no rub Gastrointestinal: soft, non-tender, positive bowel sounds Musculoskeletal: no edema Neurological: non-focal, moves all 4 limbs Dx/Plan - Plan DVT proph w/SCDs IMPRESSION: 1. HTN 2. CKD 3 3. Morbid Obesity BMI 36.6 4. Dyslipidemia 5. Hypothyroidism 6. Par Afib 7. CAD s/p stents PLAN: Cont ASA I d/w Dr Rivera - recommended to resume Plavix once ok with Dr Roa Cont Cardizem Cont other meds as below Full code. DPAO - self/family Thank you for this consultation. Will follow Review of Systems - Review of Systems Respiratory: negative: Cough, Dry, Shortness of Breath, Hemoptysis, SOB with Excertion, Pleuritic Pain, Sputum, Wheezing Cardiovascular: negative: chest pain, palpitations, orthopnea, paroxysmal nocturnal dyspnea, edema, light headedness, other Gastrointestinal: negative: Nausea, Vomiting, Abdominal Pain, Diarrhea, Constipation, Melena, Hematochezia, Other - Medications/Allergies Allergies/Adverse Reactions: Allergies Allergy/AdvReac Type Severity Reaction Status Date / Time Penicillins Allergy Verified 06/14/17 22:06 Medications: Current Medications Acetaminophen (Tylenol) 650 mg PO Q4H PRN PRN Reason: Headache/Fever or Pain Hydrocodone Bitart/Acetaminophen ([place] 10/325) 1 tab PO Q4H PRN PRN Reason: Moderate Pain (4-6) Last Admin: 06/22/18 16:17 Dose: 1 tab Hydrocodone Bitart/Acetaminophen ([place] 10/325) 2 tab PO Q4H PRN PRN Reason: Severe Pain (7-10) Aspirin (Ecotrin) 81 mg PO BID [facility] Clonidine (Catapres) 0.1 mg PO Q12HR PRN PRN Reason: Blood Pressure Diltiazem HCl (Cardizem Cd) 120 mg PO 2100 [facility] Diphenhydramine HCl (Benadryl) 25 mg PO Q3H PRN PRN Reason: Itching Diphenhydramine HCl (Benadryl) 25 mg IM Q3H PRN PRN Reason: Itching Diphenhydramine HCl (Benadryl) 25 mg IVP Q3H PRN PRN Reason: Itching Diphenhydramine HCl (Benadryl) 25 mg PO Q6H PRN PRN Reason: Itching Dorzolamide HCl (Trusopt 2% Oph Soln) 1 drop EA EYE BID [facility] Emollient Cream (Hydrocerin Cream) 0 gm TOP PRN PRN PRN Reason: Itching Fentanyl (Sublimaze) 50 mcg SLOW IVP Q30MIN PRN PRN Reason: Moderate Pain (4-6) Fentanyl (Sublimaze) 100 mcg SLOW IVP Q1H PRN PRN Reason: Severe Pain (7-10) Ferrous Gluconate (Fergon) 324 mg PO BID [facility] Vancomycin HCl 1.5 gm/ Sodium (Chloride) 300 mls @ 200 mls/hr IVPB ONCALL-OR [facility] Levofloxacin 500 mg/ Device 100 mls @ 100 mls/hr IVPB ONCALL-OR [facility] Fentanyl Citrate (Fentanyl/Bupivacaine) 100 mls @ 0 mls/hr EPIDURAL INF [facility] Levofloxacin 500 mg/ Device 100 mls @ 100 mls/hr IVPB Q24H [facility] Sodium Chloride (Normal Saline 0.9%) 1,000 mls @ 100 mls/hr IV .Q10H [facility] Last Admin: 06/22/18 13:49 Dose: 1,000 mls Vancomycin HCl 1.5 gm/ Sodium (Chloride) 300 mls @ 200 mls/hr IVPB 1900 [facility] Stop: 06/22/18 22:00 Last Admin: 06/22/18 18:36 Dose: 300 mls Iron/Minerals/Multivitamins (Theragran M) 1 tab PO DAILY [facility] Ketorolac Tromethamine (Toradol) 15 mg IVP Q6H PRN PRN Reason: Moderate Pain (4-6) Stop: 06/25/18 07:46 Last Admin: 06/22/18 11:39 Dose: 15 mg Ketorolac Tromethamine (Toradol) 15 mg IVP Q6HR [facility] Stop: 06/24/18 12:01 Last Admin: 06/22/18 18:38 Dose: 15 mg Losartan Potassium (Cozaar) 100 mg PO [facility] Miscellaneous Information (Communication Order-Pharmacy) 1 each FS ASDIR [facility] Naloxone HCl (Narcan) 0.2 mg IV Q5MIN PRN PRN Reason: RR <=8 OR OBTUNDED/UNAROUSABLE Naloxone HCl (Narcan) 0.1 mg IVP Q15MIN PRN PRN Reason: URINARY RETENTION Ondansetron HCl (Zofran) 4 mg IVP Q6H PRN PRN Reason: Nausea/Vomiting Pantoprazole Sodium (Protonix) 40 mg PO DAILY [facility] Promethazine HCl (Phenergan) 12.5 mg IM Q4H PRN PRN Reason: Nausea Promethazine HCl (Phenergan Suppository) 25 mg CO Q4H PRN PRN Reason: Nausea/Vomiting Promethazine HCl (Phenergan) 12.5 mg SLOW IVP Q4H PRN PRN Reason: Nausea/Vomiting Senna/Docusate Sodium (Senokot S) 2 tab PO BID [facility] Sodium Chloride (Flush - Normal Saline) 10 ml IVF Q12HR [facility] Last Admin: 06/22/18 10:59 Dose: Not Given Sodium Chloride (Flush - Normal Saline) 10 ml IVF PRN PRN PRN Reason: Saline Flush Sodium Chloride (Flush - Normal Saline) 10 ml IVF PRN PRN PRN Reason: Saline Flush Tramadol HCl (Ultram) 50 mg PO Q6H PRN PRN Reason: Mild Pain 1-3 Tramadol HCl (Ultram) 100 mg PO Q6H PRN PRN Reason: Moderate Pain (4-6) Zolpidem Tartrate (Ambien) 5 mg PO HSPRN PRN PRN Reason: Insomnia
[2018-06-23] MEDS: Fentanyl 5 mcg/Bup 0.075% Cadd 100 ML EPIDURAL SCH ×2 (01:56→18:46)
[2018-06-23] MEDS: HYDROcodone/Acetaminophen 10/325 mg Tablet PO PRN ×3 (02:00→14:57)
[2018-06-23 04:40] LABS: Hemoglobin 9.5 g/dL (12.0-16.0); Mean Corpuscular HGB CONC 32.8 g/dL (32.0-36.0); Mean Corpuscular Hemoglobin 30.5 pg (27.0-31.0); Mean Corpuscular Volume 92.9 fL (78.0-98.0); Mean Platelet Volume 7.7 fL (7.4-10.4); Platelet Count 156 thou/uL (130-400); RBC Distribution Width 11.6 % (11.5-14.5); Red Blood Cell (RBC) Count 3.11 mill/uL (4.20-5.40); White Blood Cell (WBC) Count 5.6 thou/uL (4.8-10.8)
[2018-06-23] MEDS: Ketorolac Tromethamine 30 MG/ML VIAL IVP SCH ×4 (06:31→23:15)
[2018-06-23] MEDS: Aspirin 81 mg Enteric Coated Tablet PO SCH ×2 (08:16→20:23)
[2018-06-23] MEDS: Multivitamin W/ Minerals 1 TAB PO SCH (08:16)
[2018-06-23] MEDS: Carvedilol 6.25 MG TAB PO SCH ×2 (08:16→18:16)
[2018-06-23] MEDS: Senokot S 8.6-50 MG TAB PO SCH ×2 (08:17→20:23)
[2018-06-23] MEDS: Ferrous Gluconate 324 MG TAB PO SCH ×2 (08:17→20:23)
[2018-06-23] MEDS: Sodium Chloride 0.9% 1,000 ML IV SCH ×2 (08:50→19:06)
[2018-06-23] MEDS: Dorzolamide HCl 2% Ophth Soln 10 ml Bottle EA EYE SCH ×2 (09:13→20:24)
--- NOTE | 2018-06-23 09:58 | PRG ---
DATE OF SERVICE: SUBJECTIVE: Armida is a 68-year-old white female, who is postop day one from a right total hip arthroplasty. She has a very little in the way of complaints. Yesterday, she walked approximately 140 feet postoperatively, but she did have a little bit of lightheadedness and little unstable, some dizziness accompanying her standing. OBJECTIVE: VITAL SIGNS: Temperature 97.6, pulse 82, respiratory rate 14 and nonlabored, and blood pressure is 133/77. GENERAL: She is alert and oriented to person, place, time and situation, grossly nonfocal. SKIN: Her incision is clean without any strikethrough. No erythema is noted. She is neurovascularly intact in the right lower extremity. LABORATORY DATA: Hemoglobin and hematocrit of 9.5 and 28.9. IMPRESSION: 1. This is a 68-year-old female, postop day one right total hip arthroplasty, doing well. 2. Mild postoperative hemorrhagic anemia. This may be giving her dizziness, might be symptomatic. PLAN: Continue current care. Continue observation. Probable discharge home tomorrow. Job ID: [id number]
[2018-06-23] MEDS: Rosuvastatin 20 MG TAB PO SCH (20:23)
[2018-06-23] MEDS: Losartan 25 MG TAB PO SCH (20:23)
[2018-06-23] MEDS: Latanoprost 0.005% Ophth Soln 2.5 ml Bottle EA EYE SCH (20:24)
--- NOTE | 2018-06-23 22:12 | PDOC.PN ---
- Subjective Encounter Start Date: 06/23/18 Encounter Start Time: 13:00 Patient seen and examined for med mngt. Feels gen weak and lightheaded on standing. No CP. No new complaints. No overnight events - Objective MAR Reviewed: Yes Vital Signs & Weight: Vital Signs (12 hours) Temp Pulse Resp BP Pulse Ox 06/23/18 20:34 96 06/23/18 20:33 98.5 F 83 16 122/67 96 06/23/18 20:23 82 Weight Admit Weight 200 lb Weight 200 lb I&O: 06/22/18 06/23/18 06/24/18 06:59 06:59 06:59 Intake Total 2550 820 Output Total 2200 875 Balance 350 -55 Result Diagrams: 06/23/18 04:22 06/16/18 10:43 Phys Exam - Physical Examination Constitutional: NAD Respiratory: no wheezing, no rhonchi Cardiovascular: RRR, no rub Gastrointestinal: soft, non-tender, positive bowel sounds Musculoskeletal: no edema Dx/Plan - Plan DVT proph w/SCDs 1. HTN 2. CKD 3 3. Morbid Obesity BMI 36.6 4. Dyslipidemia 5. Hypothyroidism 6. Par Afib 7. CAD s/p stent PLAN: Cont ASA - add Plavix when ok with Dr Roa Cont PO Cardizem/Coreg Hold Losartan for SBP <130 Cont other meds as below Check Orthostatic vitals Review of Systems - Review of Systems Respiratory: negative: Cough, Dry, Shortness of Breath, Hemoptysis, SOB with Excertion, Pleuritic Pain, Sputum, Wheezing Cardiovascular: negative: chest pain, palpitations, orthopnea, paroxysmal nocturnal dyspnea, edema, light headedness, other - Medications/Allergies Allergies/Adverse Reactions: Allergies Allergy/AdvReac Type Severity Reaction Status Date / Time Penicillins Allergy Verified 06/14/17 22:06 Medications: Current Medications Acetaminophen (Tylenol) 650 mg PO Q4H PRN PRN Reason: Headache/Fever or Pain Hydrocodone Bitart/Acetaminophen ([place] 10/325) 1 tab PO Q4H PRN PRN Reason: Moderate Pain (4-6) Last Admin: 06/23/18 14:57 Dose: 1 tab Hydrocodone Bitart/Acetaminophen ([place] 10/325) 2 tab PO Q4H PRN PRN Reason: Severe Pain (7-10) Aspirin (Ecotrin) 81 mg PO BID [facility] Last Admin: 06/23/18 20:23 Dose: 81 mg Carvedilol (Coreg) 6.25 mg PO BID-[facility] Last Admin: 06/23/18 18:16 Dose: 6.25 mg Clonidine (Catapres) 0.1 mg PO Q12HR PRN PRN Reason: Blood Pressure Diltiazem HCl (Cardizem Cd) 120 mg PO 2100 [facility] Last Admin: 06/23/18 20:23 Dose: 120 mg Diphenhydramine HCl (Benadryl) 25 mg PO Q3H PRN PRN Reason: Itching Diphenhydramine HCl (Benadryl) 25 mg IM Q3H PRN PRN Reason: Itching Diphenhydramine HCl (Benadryl) 25 mg IVP Q3H PRN PRN Reason: Itching Dorzolamide HCl (Trusopt 2% Ophth Soln) 1 drop EA EYE BID [facility] Last Admin: 06/23/18 20:24 Dose: Not Given Emollient Cream (Hydrocerin Cream) 0 gm TOP PRN PRN PRN Reason: Itching Fentanyl (Sublimaze) 50 mcg SLOW IVP Q30MIN PRN PRN Reason: Moderate Pain (4-6) Fentanyl (Sublimaze) 100 mcg SLOW IVP Q1H PRN PRN Reason: Severe Pain (7-10) Ferrous Gluconate (Fergon) 324 mg PO BID [facility] Last Admin: 06/23/18 20:23 Dose: 324 mg Vancomycin HCl 1.5 gm/ Sodium (Chloride) 300 mls @ 200 mls/hr IVPB ONCALL-OR JHON Levofloxacin 500 mg/ Device 100 mls @ 100 mls/hr IVPB ONCALL-OR J[facility]ON Fentanyl Citrate (Fentanyl/Bupivacaine) 100 mls @ 0 mls/hr EPIDURAL INF [facility] Last Admin: 06/23/18 18:46 Dose: 100 mls Levofloxacin 500 mg/ Device 100 mls @ 100 mls/hr IVPB Q24H [facility] Last Admin: 06/23/18 06:35 Dose: 100 mls Sodium Chloride (Normal Saline 0.9%) 1,000 mls @ 100 mls/hr IV .Q10H [facility] Last Admin: 06/23/18 19:06 Dose: Not Given Iron/Minerals/Multivitamins (Theragran M) 1 tab PO DAILY [facility] Last Admin: 06/23/18 08:16 Dose: 1 tab Ketorolac Tromethamine (Toradol) 15 mg IVP Q6H PRN PRN Reason: Moderate Pain (4-6) Stop: 06/25/18 07:46 Last Admin: 06/22/18 11:39 Dose: 15 mg Ketorolac Tromethamine (Toradol) 15 mg IVP Q6HR [facility] Stop: 06/24/18 12:01 Last Admin: 06/23/18 18:15 Dose: 15 mg Latanoprost (Xalatan 0.005% Oph Soln) 1 drop EA EYE [facility] Last Admin: 06/23/18 20:24 Dose: Not Given Levothyroxine Sodium (Synthroid) 75 mcg PO 0600 [facility] Losartan Potassium (Cozaar) 100 mg PO [facility] Last Admin: 06/23/18 20:23 Dose: 100 mg Miscellaneous Information (Communication Order-Pharmacy) 1 each FS ASDIR [facility] Naloxone HCl (Narcan) 0.2 mg IV Q5MIN PRN PRN Reason: RR <=8 OR OBTUNDED/UNAROUSABLE Naloxone HCl (Narcan) 0.1 mg IVP Q15MIN PRN PRN Reason: URINARY RETENTION Ondansetron HCl (Zofran) 4 mg IVP Q6H PRN PRN Reason: Nausea/Vomiting Last Admin: 06/23/18 06:28 Dose: 4 mg Pantoprazole Sodium (Protonix) 40 mg PO DAILY [facility] Last Admin: 06/23/18 08:17 Dose: 40 mg Promethazine HCl (Phenergan) 12.5 mg IM Q4H PRN PRN Reason: Nausea Promethazine HCl (Phenergan Suppository) 25 mg [place] Q4H PRN PRN Reason: Nausea/Vomiting Promethazine HCl (Phenergan) 12.5 mg SLOW IVP Q4H PRN PRN Reason: Nausea/Vomiting Rosuvastatin Calcium (Crestor) 20 mg PO [facility] Last Admin: 06/23/18 20:23 Dose: 20 mg Senna/Docusate Sodium (Senokot S) 2 tab PO BID [facility] Last Admin: 06/23/18 20:23 Dose: 2 tab Sodium Chloride (Flush - Normal Saline) 10 ml IVF Q12HR [facility] Last Admin: 06/23/18 20:29 Dose: 10 ml Sodium Chloride (Flush - Normal Saline) 10 ml IVF PRN PRN PRN Reason: Saline Flush Sodium Chloride (Flush - Normal Saline) 10 ml IVF PRN PRN PRN Reason: Saline Flush Tramadol HCl (Ultram) 50 mg PO Q6H PRN PRN Reason: Mild Pain 1-3 Tramadol HCl (Ultram) 100 mg PO Q6H PRN PRN Reason: Moderate Pain (4-6) Zolpidem Tartrate (Ambien) 5 mg PO HSPRN PRN PRN Reason: Insomnia
[2018-06-24] MEDS ORDERED: Losartan 25 MG TAB PO SCH (00:07)
[2018-06-24] MEDS: Sodium Chloride 0.9% 1,000 ML IV SCH ×3 (00:32→21:42)
[2018-06-24] MEDS: HYDROcodone/Acetaminophen 10/325 mg Tablet PO PRN ×3 (02:22→21:37)
[2018-06-24 04:55] LABS: Hemoglobin 9.1 g/dL (12.0-16.0); Mean Corpuscular HGB CONC 33.7 g/dL (32.0-36.0); Mean Corpuscular Hemoglobin 31.5 pg (27.0-31.0); Mean Corpuscular Volume 93.3 fL (78.0-98.0); Mean Platelet Volume 8.1 fL (7.4-10.4); Platelet Count 165 thou/uL (130-400); RBC Distribution Width 11.7 % (11.5-14.5); Red Blood Cell (RBC) Count 2.89 mill/uL (4.20-5.40); White Blood Cell (WBC) Count 8.3 thou/uL (4.8-10.8)
[2018-06-24 05:10] LABS: Anion Gap 10 mmol/L (10-20); BUN (Urea Nitrogen) 17 mg/dL (9.8-20.1); Calc. Creatinine Clearance 70 mL/min (70-130); Calcium 8.6 mg/dL (7.8-10.44); Carbon Dioxide 24 mmol/L (23-31); Chloride 102 mmol/L (98-107); Estimated GFR-MDRD 49; Glucose 133 mg/dL (80-115); Magnesium 1.6 mg/dL (1.6-2.6); Potassium 3.9 mmol/L (3.5-5.1); Sodium 132 mmol/L (136-145)
[2018-06-24] MEDS: Levothyroxine Sodium 75 MCG TAB PO SCH (06:38)
[2018-06-24] MEDS: Ketorolac Tromethamine 30 MG/ML VIAL IVP SCH ×2 (06:39→12:51)
[2018-06-24] MEDS: Carvedilol 6.25 MG TAB PO SCH ×2 (10:40→17:07)
[2018-06-24] MEDS: Senokot S 8.6-50 MG TAB PO SCH ×2 (10:41→21:24)
[2018-06-24] MEDS: Dorzolamide HCl 2% Ophth Soln 10 ml Bottle EA EYE SCH ×2 (10:41→21:30)
[2018-06-24] MEDS: Ferrous Gluconate 324 MG TAB PO SCH ×2 (10:41→21:39)
[2018-06-24] MEDS: Aspirin 81 mg Enteric Coated Tablet PO SCH ×2 (10:41→21:24)
[2018-06-24] MEDS: Multivitamin W/ Minerals 1 TAB PO SCH (10:42)
--- NOTE | 2018-06-24 12:57 | PDOC.PN ---
- Subjective Encounter Start Date: 06/24/18 Encounter Start Time: 08:00 -: old records requested/rev pt is now off epidural, her pain controlled, she has low BP but no symptoms - Objective MAR Reviewed: Yes Vital Signs & Weight: Vital Signs (12 hours) Temp Pulse Resp BP BP BP Pulse Ox 06/24/18 12:38 98.6 F 76 14 104/66 97 06/24/18 08:51 98.6 F 82 15 95/57 L 95 06/24/18 08:25 78 99/52 L 06/24/18 05:00 98.7 F 88 16 96/63 102/64 120/70 94 L Weight Admit Weight 200 lb Weight 200 lb I&O: 06/23/18 06/24/18 06/25/18 06:59 06:59 06:59 Intake Total 2550 820 Output Total 2200 1275 Balance 350 -455 Result Diagrams: 06/24/18 04:16 06/24/18 04:16 Phys Exam - Physical Examination Constitutional: NAD HEENT: PERRLA, moist MMs, sclera anicteric Neck: no JVD, supple Respiratory: no wheezing, no rales, no rhonchi Cardiovascular: RRR, no significant murmur, no rub Gastrointestinal: soft, non-tender, no distention, positive bowel sounds Musculoskeletal: no edema, pulses present Neurological: non-focal, normal sensation, moves all 4 limbs Lymphatic: no nodes Psychiatric: normal affect, A&O x 3 Skin: no rash, normal turgor Dx/Plan (1) Status post right hip replacement Code(s): Z96.641 - PRESENCE OF RIGHT ARTIFICIAL HIP JOINT Status: Acute (2) CAD (coronary artery disease) Code(s): I25.10 - ATHSCL HEART DISEASE OF [place] CORONARY ARTERY W/O ANG PCTRS Status: Chronic (3) CKD (chronic kidney disease) stage 3, GFR 30-59 ml/min Code(s): N18.3 - CHRONIC KIDNEY DISEASE, STAGE 3 (MODERATE) Status: Chronic (4) Dyslipidemia Code(s): E78.5 - HYPERLIPIDEMIA, UNSPECIFIED Status: Chronic (5) Hypertension Code(s): I10 - ESSENTIAL (PRIMARY) HYPERTENSION Status: Chronic (6) Hypothyroidism Code(s): E03.9 - HYPOTHYROIDISM, UNSPECIFIED Status: Chronic (7) Obesity (BMI 30-39.9) Code(s): E66.9 - OBESITY, UNSPECIFIED Status: Chronic (8) PAF (paroxysmal atrial fibrillation) Code(s): I48.0 - PAROXYSMAL ATRIAL FIBRILLATION Status: Chronic - Plan cont current plan of care, plan discussed w/ family, PT/OT * hold BP meds , expecting to improve * medication reviewed as below * symptomatic treatment * discharge per primary team * pain controlled * pt should hold BP meds for SBP <120 at home. Review of Systems - Review of Systems ENT: negative: Ear Pain, Ear Discharge, Nose Pain, Nose Discharge, Nose Congestion, Mouth Pain, Mouth Swelling, Throat Pain, Throat Swelling, Other Respiratory: negative: Cough, Dry, Shortness of Breath, Hemoptysis, SOB with Excertion, Pleuritic Pain, Sputum, Wheezing Cardiovascular: negative: chest pain, palpitations, orthopnea, paroxysmal nocturnal dyspnea, edema, light headedness, other Gastrointestinal: negative: Nausea, Vomiting, Abdominal Pain, Diarrhea, Constipation, Melena, Hematochezia, Other Genitourinary: negative: Dysuria, Frequency, Incontinence, Hematuria, Retention , Other Musculoskeletal: negative: Neck Pain, Shoulder Pain, Arm Pain, Back Pain, Hand Pain, Leg Pain, Foot Pain, Other - Medications/Allergies Allergies/Adverse Reactions: Allergies Allergy/AdvReac Type Severity Reaction Status Date / Time Penicillins Allergy Verified 06/14/17 22:06 Medications: Current Medications Acetaminophen (Tylenol) 650 mg PO Q4H PRN PRN Reason: Headache/Fever or Pain Hydrocodone Bitart/Acetaminophen ([place] 10/325) 1 tab PO Q4H PRN PRN Reason: Moderate Pain (4-6) Last Admin: 06/24/18 10:26 Dose: 1 tab Hydrocodone Bitart/Acetaminophen ([place] 10/325) 2 tab PO Q4H PRN PRN Reason: Severe Pain (7-10) Aspirin (Ecotrin) 81 mg PO BID [facility] Last Admin: 06/24/18 10:41 Dose: 81 mg Carvedilol (Coreg) 6.25 mg PO [facility] Last Admin: 06/24/18 10:40 Dose: Not Given Clonidine (Catapres) 0.1 mg PO Q12HR PRN PRN Reason: Blood Pressure Diltiazem HCl (Cardizem Cd) 120 mg PO 2100 [facility] Last Admin: 06/23/18 20:23 Dose: 120 mg Diphenhydramine HCl (Benadryl) 25 mg PO Q3H PRN PRN Reason: Itching Diphenhydramine HCl (Benadryl) 25 mg IM Q3H PRN PRN Reason: Itching Diphenhydramine HCl (Benadryl) 25 mg IVP Q3H PRN PRN Reason: Itching Dorzolamide HCl (Trusopt 2% Ophth Soln) 1 drop EA EYE BID [facility] Last Admin: 06/24/18 10:41 Dose: Not Given Emollient Cream (Hydrocerin Cream) 0 gm TOP PRN PRN PRN Reason: Itching Fentanyl (Sublimaze) 50 mcg SLOW IVP Q30MIN PRN PRN Reason: Moderate Pain (4-6) Fentanyl (Sublimaze) 100 mcg SLOW IVP Q1H PRN PRN Reason: Severe Pain (7-10) Ferrous Gluconate (Fergon) 324 mg PO BID [facility] Last Admin: 06/24/18 10:41 Dose: 324 mg Vancomycin HCl 1.5 gm/ Sodium (Chloride) 300 mls @ 200 mls/hr IVPB ONCALL-OR JHON Fentanyl Citrate (Fentanyl/Bupivacaine) 100 mls @ 0 mls/hr EPIDURAL INF [facility] Last Admin: 06/23/18 18:46 Dose: 100 mls Sodium Chloride (Normal Saline 0.9%) 1,000 mls @ 100 mls/hr IV .Q10H [facility] Last Admin: 06/24/18 00:32 Dose: Not Given Iron/Minerals/Multivitamins (Theragran M) 1 tab PO DAILY [facility] Last Admin: 06/24/18 10:42 Dose: 1 tab Ketorolac Tromethamine (Toradol) 15 mg IVP Q6H PRN PRN Reason: Moderate Pain (4-6) Stop: 06/25/18 07:46 Last Admin: 06/22/18 11:39 Dose: 15 mg Latanoprost (Xalatan 0.005% Ophth Soln) 1 drop EA EYE HS [facility] Last Admin: 06/23/18 20:24 Dose: Not Given Levothyroxine Sodium (Synthroid) 75 mcg PO 0600 [facility] Last Admin: 06/24/18 06:38 Dose: 75 mcg Losartan Potassium (Cozaar) 100 mg PO HS [facility]ON Miscellaneous Information (Communication Order-Pharmacy) 1 each FS ASDIR [facility] Naloxone HCl (Narcan) 0.2 mg IV Q5MIN PRN PRN Reason: RR <=8 OR OBTUNDED/UNAROUSABLE Naloxone HCl (Narcan) 0.1 mg IVP Q15MIN PRN PRN Reason: URINARY RETENTION Ondansetron HCl (Zofran) 4 mg IVP Q6H PRN PRN Reason: Nausea/Vomiting Last Admin: 06/23/18 06:28 Dose: 4 mg Pantoprazole Sodium (Protonix) 40 mg PO DAILY [facility] Last Admin: 06/24/18 10:41 Dose: 40 mg Promethazine HCl (Phenergan) 12.5 mg IM Q4H PRN PRN Reason: Nausea Promethazine HCl (Phenergan Suppository) 25 mg [place] Q4H PRN PRN Reason: Nausea/Vomiting Promethazine HCl (Phenergan) 12.5 mg SLOW IVP Q4H PRN PRN Reason: Nausea/Vomiting Rosuvastatin Calcium (Crestor) 20 mg PO [facility] Last Admin: 06/23/18 20:23 Dose: 20 mg Senna/Docusate Sodium (Senokot S) 2 tab PO BID [facility] Last Admin: 06/24/18 10:41 Dose: 2 tab Sodium Chloride (Flush - Normal Saline) 10 ml IVF Q12HR [facility] Last Admin: 06/23/18 20:29 Dose: 10 ml Sodium Chloride (Flush - Normal Saline) 10 ml IVF PRN PRN PRN Reason: Saline Flush Sodium Chloride (Flush - Normal Saline) 10 ml IVF PRN PRN PRN Reason: Saline Flush Tramadol HCl (Ultram) 50 mg PO Q6H PRN PRN Reason: Mild Pain 1-3 Tramadol HCl (Ultram) 100 mg PO Q6H PRN PRN Reason: Moderate Pain (4-6) Zolpidem Tartrate (Ambien) 5 mg PO HSPRN PRN PRN Reason: Insomnia
--- NOTE | 2018-06-24 13:36 | PRG ---
DATE OF SERVICE: 06/24/2018 SUBJECTIVE: Armida is a 68-year-old white female, who is postop day 2 from right total hip arthroplasty. She is doing relatively well, but she still feels very weak and thready. Her epidural was removed earlier today. She felt as though the removal of the epidural has helped somewhat with her lightheadedness, and she was able to ambulate around the third floor. Total distance was about 230 feet. OBJECTIVE: VITAL SIGNS: Temperature 98.6, pulse 76, respiratory rate 14, blood pressure 104/66. GENERAL: She is alert and oriented to person, place, time, situation grossly nonfocal, and neurovascularly intact. EXTREMITIES: There is no strikethrough, and she is intact in the right lower extremity. LABORATORY DATA: Hemoglobin and hematocrit 9.1 and 27.0. IMPRESSION: 1. A 68-year-old white female, postoperative day 2, right total hip arthroplasty, doing well. 2. Postoperative hemorrhagic anemia, symptomatic, but improved. PLAN: Continue current care. Discharge to home tomorrow. I would like to keep her another night and recheck her hemoglobin and hematocrit and her orthostasis. Job ID: [id number]
--- NOTE | 2018-06-24 15:01 | PQF ---
CLINICAL DOCUMENTATION IMPROVEMENT CLARIFICATION FORM: ICD-10 Updated PLEASE DO AN ADDENDUM TO THE PROGRESS NOTE WITH ANY DOCUMENTATION UPDATES OR ADDITIONS AND CARRY THROUGH TO DC SUMMARY. THANK YOU. DATE: 06/24/18 ATTN: DR. LAURENT Please exercise your independent, professional judgment in responding to the clarification form. Clinical indicators are provided on the bottom of this form for your review Please check appropriate box(s): [ ] Acute blood loss anemia [ x] Post-op anemia related to acute blood loss [ ] Anemia: [ ] Aplastic [ ] Nutritional [ ] Drug induced (specify) ___ [ ] Hemolytic [ ] Hereditary [ ] Acquired [ ] Autoimmune [ ] Non-autoimmune [ ] Enzyme disorder [ ] Chronic Anemia: [ ] Blood loss [ ] Hemolytic [ ] Simple [ ] Due to Vitamin B12 Deficiency [ ] Other [ ] Anemia of Chronic Disease (please specify) [ ] Other diagnosis [ ] Unable to determine In addition, please specify: Present on Admission (POA): [x ] Yes [ ] No [ ] Unable to determine For continuity of documentation, please document condition throughout progress notes and discharge summary. Thank You. CLINICAL INDICATORS - SIGNS / SYMPTOMS / LABS PROGRESS NOTE 06/23: "MILD POSTOP HEMORRHAGIC ANEMIA. 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 All Rights Reserved ALESSANDRO [email or web address] Office: [phone] [facility] HOSPITAL[facility]illy
[2018-06-24] MEDS: Latanoprost 0.005% Ophth Soln 2.5 ml Bottle EA EYE SCH (21:30)
[2018-06-24] MEDS: Rosuvastatin 20 MG TAB PO SCH (21:30)
[2018-06-25] MEDS: HYDROcodone/Acetaminophen 10/325 mg Tablet PO PRN ×3 (03:18→11:01)
[2018-06-25] MEDS: Levothyroxine Sodium 75 MCG TAB PO SCH (05:33)
[2018-06-25] MEDS: Senokot S 8.6-50 MG TAB PO SCH (09:34)
[2018-06-25] MEDS: Aspirin 81 mg Enteric Coated Tablet PO SCH (09:34)
[2018-06-25] MEDS: Dorzolamide HCl 2% Ophth Soln 10 ml Bottle EA EYE SCH (09:35)
[2018-06-25] MEDS: Ferrous Gluconate 324 MG TAB PO SCH (09:35)
[2018-06-25] MEDS: Multivitamin W/ Minerals 1 TAB PO SCH (09:35)
[2018-06-25] MEDS: Carvedilol 6.25 MG TAB PO SCH (09:35)
--- NOTE | 2018-06-25 13:28 | DIS ---
DATE OF ADMISSION: 06/22/2018 DATE OF DISCHARGE: 06/25/2018 DISCHARGE SUMMARY/PROGRESS NOTE/SIGN-OUT NOTE/TRANSFER OF CARE NOTE PRIMARY CARE PHYSICIAN: [facility] Call admission. DISCHARGE DISPOSITION: Home. PRIMARY DISCHARGE DIAGNOSES: 1. Status post right total hip replacement. 2. Postoperative acute blood loss anemia. SECONDARY DISCHARGE DIAGNOSES: 1. Coronary artery disease. 2. Chronic kidney disease, stage 3. 3. Dyslipidemia. 4. Hypothyroidism. 5. Obesity. 6. Paroxysmal atrial fibrillation. 7. Glaucoma. PRIMARY PROCEDURE/OPERATION: Right total hip replacement by Dr. Roa. RADIOLOGICAL INVESTIGATION: Hip x-ray. SIGNIFICANT LABORATORY DATA: WBC 8.3, hemoglobin 9.1, and platelet 165. Sodium 132, creatinine 1.1. Urinalysis normal. DISCHARGE MEDICATIONS: 1. [place] 10 one tablet q.6 hourly p.r.n. 2. Clonidine 0.1 mg p.o. q.12 hourly p.r.n. 3. Plavix 75 mg p.o. daily. 4. Cardizem CD 120 mg b.i.d. 5. Dorzolamide ophthalmic drops b.i.d. 6. Nexium 20 mg daily. 7. Xalatan eye drops at bedtime. 8. Synthroid 75 mcg p.o. daily. 9. Cozaar 100 mg p.o. at bedtime. 10. Aspirin 81 mg daily. 11. Coreg 6.25 mg b.i.d. 12. Crestor 20 mg p.o. q.h.s. CONTRAINDICATION: None. CODE STATUS: Full code. INPATIENT HAND RUG BRAIDER: Dr. Roa was primary. Sound Team was consulted for medical comanagement. TEST RESULTS PENDING ON DISCHARGE: None. ALLERGIES: PENICILLIN. DISCHARGE PLAN: Posthospital, the patient will follow up with Dr. Roa on July 13, 2018, at 2:15 p.m., and the patient will make appointment primary care physician in 1 week. HOSPITAL COURSE: A 68-year-old female with above-mentioned medical problem, who was admitted by Dr. Roa for right total hip replacement, which was done on June 22, 2018, without any complications. Postoperatively, the patient had epidural in place. Sound Team was consulted for medical comanagement. The patient's all medical problems remained stable. She was found with hypotension and that is why we held her blood pressure medication. She had mild postoperative blood loss anemia, which did not require any blood transfusion. Her epidural was discontinued at that point. The patient's blood pressure improved. She was given IV fluid momentarily and held blood pressure medication. Today, the patient's blood pressure is much improved and she is completely asymptomatic. Necessary patient education about holding blood pressure medication is given in case if blood pressure is less than 120 systolic. Rest of medications will continue as per previous. I have seen and examined the patient at bedside today. I have reviewed all review of systems with her and negative. Plan of care discussed with the patient and her at bedside. PHYSICAL EXAMINATION: CURRENT VITAL SIGNS: Temperature 98.8, pulse 60, respiratory rate 18, saturation 98% on room air, blood pressure 109/61, and weight 200 pounds. GENERAL: The patient is currently alert, oriented, in no acute distress. HEENT: Head, normocephalic and atraumatic. LUNGS: Clear to auscultation without any rhonchi or rales. CARDIAC: S1 and S2. Regular without any murmur. ABDOMEN: Soft and benign. EXTREMITIES: No edema. NEUROLOGIC: Nonfocal examination. EXTREMITIES: Surgical site is clean and healthy. The patient is medically stable for discharge today, and we will sign off. Job ID: [id number]
--- NOTE | 2018-06-25 13:29 | PDOC.PN ---
- Subjective Encounter Start Date: 06/25/18 Encounter Start Time: 10:30 Patient seen and examined. No new complaints. No overnight events - Objective MAR Reviewed: Yes Vital Signs & Weight: Vital Signs (12 hours) Temp Pulse Resp BP BP BP Pulse Ox 06/25/18 08:21 98.8 F 60 14 109/61 98 06/25/18 05:00 109/71 119/72 108/66 06/25/18 03:00 98.4 F 86 18 119/68 96 Weight Admit Weight 200 lb Weight 200 lb I&O: 06/24/18 06/25/18 06/26/18 06:59 06:59 06:59 Intake Total 820 480 Output Total 1275 Balance -455 480 Result Diagrams: 06/24/18 04:16 06/24/18 04:16 Phys Exam - Physical Examination Constitutional: NAD HEENT: PERRLA, moist MMs, sclera anicteric Neck: no JVD, supple Respiratory: no wheezing, no rales, no rhonchi Cardiovascular: RRR, no significant murmur, no rub Gastrointestinal: soft, non-tender, no distention, positive bowel sounds Musculoskeletal: no edema, pulses present Neurological: non-focal, normal sensation Lymphatic: no nodes Psychiatric: normal affect, A&O x 3 Skin: no rash, normal turgor Dx/Plan (1) Status post right hip replacement Code(s): Z96.641 - PRESENCE OF RIGHT ARTIFICIAL HIP JOINT Status: Acute (2) CAD (coronary artery disease) Code(s): I25.10 - ATHSCL HEART DISEASE OF [place] CORONARY ARTERY W/O ANG PCTRS Status: Chronic (3) CKD (chronic kidney disease) stage 3, GFR 30-59 ml/min Code(s): N18.3 - CHRONIC KIDNEY DISEASE, STAGE 3 (MODERATE) Status: Chronic (4) Dyslipidemia Code(s): E78.5 - HYPERLIPIDEMIA, UNSPECIFIED Status: Chronic (5) Hypertension Code(s): I10 - ESSENTIAL (PRIMARY) HYPERTENSION Status: Chronic (6) Hypothyroidism Code(s): E03.9 - HYPOTHYROIDISM, UNSPECIFIED Status: Chronic (7) Obesity (BMI 30-39.9) Code(s): E66.9 - OBESITY, UNSPECIFIED Status: Chronic (8) PAF (paroxysmal atrial fibrillation) Code(s): I48.0 - PAROXYSMAL ATRIAL FIBRILLATION Status: Chronic - Plan cont current plan of care, plan discussed w/ family * medication reviewed as below * symptomatic treatment * see discharge kate. Review of Systems - Review of Systems ENT: negative: Ear Pain, Ear Discharge, Nose Pain, Nose Discharge, Nose Congestion, Mouth Pain, Mouth Swelling, Throat Pain, Throat Swelling, Other Respiratory: negative: Cough, Dry, Shortness of Breath, Hemoptysis, SOB with Excertion, Pleuritic Pain, Sputum, Wheezing Cardiovascular: negative: chest pain, palpitations, orthopnea, paroxysmal nocturnal dyspnea, edema, light headedness, other Gastrointestinal: negative: Nausea, Vomiting, Abdominal Pain, Diarrhea, Constipation, Melena, Hematochezia, Other Genitourinary: negative: Dysuria, Frequency, Incontinence, Hematuria, Retention , Other Musculoskeletal: negative: Neck Pain, Shoulder Pain, Arm Pain, Back Pain, Hand Pain, Leg Pain, Foot Pain, Other Skin: negative: Rash, Lesions, [place], Bruising, Other - Medications/Allergies Allergies/Adverse Reactions: Allergies Allergy/AdvReac Type Severity Reaction Status Date / Time Penicillins Allergy Verified 06/14/17 22:06 Medications: Current Medications Acetaminophen (Tylenol) 650 mg PO Q4H PRN PRN Reason: Headache/Fever or Pain Hydrocodone Bitart/Acetaminophen ([place] 10/325) 1 tab PO Q4H PRN PRN Reason: Moderate Pain (4-6) Last Admin: 06/25/18 11:01 Dose: 1 tab Hydrocodone Bitart/Acetaminophen ([place] 10/325) 2 tab PO Q4H PRN PRN Reason: Severe Pain (7-10) Aspirin (Ecotrin) 81 mg PO BID [facility] Last Admin: 06/25/18 09:34 Dose: 81 mg Carvedilol (Coreg) 6.25 mg PO BID-[facility] Last Admin: 06/25/18 09:35 Dose: Not Given Clonidine (Catapres) 0.1 mg PO Q12HR PRN PRN Reason: Blood Pressure Diltiazem HCl (Cardizem Cd) 120 mg PO 2100 [facility] Last Admin: 06/24/18 21:34 Dose: 120 mg Diphenhydramine HCl (Benadryl) 25 mg PO Q3H PRN PRN Reason: Itching Diphenhydramine HCl (Benadryl) 25 mg IM Q3H PRN PRN Reason: Itching Diphenhydramine HCl (Benadryl) 25 mg IVP Q3H PRN PRN Reason: Itching Dorzolamide HCl (Trusopt 2% Ophth Soln) 1 drop EA EYE BID [facility] Last Admin: 06/25/18 09:35 Dose: Not Given Emollient Cream (Hydrocerin Cream) 0 gm TOP PRN PRN PRN Reason: Itching Fentanyl (Sublimaze) 50 mcg SLOW IVP Q30MIN PRN PRN Reason: Moderate Pain (4-6) Fentanyl (Sublimaze) 100 mcg SLOW IVP Q1H PRN PRN Reason: Severe Pain (7-10) Ferrous Gluconate (Fergon) 324 mg PO BID [facility] Last Admin: 06/25/18 09:35 Dose: 324 mg Fentanyl Citrate (Fentanyl/Bupivacaine) 100 mls @ 0 mls/hr EPIDURAL INF [facility] Last Admin: 06/23/18 18:46 Dose: 100 mls Sodium Chloride (Normal Saline 0.9%) 1,000 mls @ 100 mls/hr IV .Q10H [facility] Last Admin: 06/24/18 21:42 Dose: Not Given Iron/Minerals/Multivitamins (Theragran M) 1 tab PO DAILY [facility] Last Admin: 06/25/18 09:35 Dose: 1 tab Latanoprost (Xalatan 0.005% Ophth Soln) 1 drop EA EYE [facility] Last Admin: 06/24/18 21:30 Dose: Not Given Levothyroxine Sodium (Synthroid) 75 mcg PO 0600 [facility] Last Admin: 06/25/18 05:33 Dose: 75 mcg Losartan Potassium (Cozaar) 100 mg PO HS [facility] Last Admin: 06/24/18 21:34 Dose: 100 mg Miscellaneous Information (Communication Order-Pharmacy) 1 each FS ASDIR [facility] Naloxone HCl (Narcan) 0.2 mg IV Q5MIN PRN PRN Reason: RR <=8 OR OBTUNDED/UNAROUSABLE Naloxone HCl (Narcan) 0.1 mg IVP Q15MIN PRN PRN Reason: URINARY RETENTION Ondansetron HCl (Zofran) 4 mg IVP Q6H PRN PRN Reason: Nausea/Vomiting Last Admin: 06/23/18 06:28 Dose: 4 mg Pantoprazole Sodium (Protonix) 40 mg PO DAILY [facility] Last Admin: 06/25/18 09:34 Dose: 40 mg Promethazine HCl (Phenergan) 12.5 mg IM Q4H PRN PRN Reason: Nausea Promethazine HCl (Phenergan Suppository) 25 mg DE Q4H PRN PRN Reason: Nausea/Vomiting Promethazine HCl (Phenergan) 12.5 mg SLOW IVP Q4H PRN PRN Reason: Nausea/Vomiting Rosuvastatin Calcium (Crestor) 20 mg PO HS [facility] Last Admin: 06/24/18 21:30 Dose: 20 mg Senna/Docusate Sodium (Senokot S) 2 tab PO BID [facility] Last Admin: 06/25/18 09:34 Dose: 2 tab Sodium Chloride (Flush - Normal Saline) 10 ml IVF Q12HR [facility] Last Admin: 06/25/18 09:38 Dose: Not Given Sodium Chloride (Flush - Normal Saline) 10 ml IVF PRN PRN PRN Reason: Saline Flush Sodium Chloride (Flush - Normal Saline) 10 ml IVF PRN PRN PRN Reason: Saline Flush Tramadol HCl (Ultram) 50 mg PO Q6H PRN PRN Reason: Mild Pain 1-3 Tramadol HCl (Ultram) 100 mg PO Q6H PRN PRN Reason: Moderate Pain (4-6) Zolpidem Tartrate (Ambien) 5 mg PO HSPRN PRN PRN Reason: Insomnia
[2018-06-25 13:59] VITALS: BP 122/72; TEMP 98.3
== END 2018-06-25 14:00 | disposition home or self-care (01) | DRG 470 ==
LOC: SJJU 06-22 05:34
PROVIDERS: ADMIT Orthopaedic Surgery; ATTEND Orthopaedic Surgery
PROC: 0SR904A Replacement of Right Hip Joint with Ceramic on Polyethylene Synthetic Substitute, Uncemented, Open Approach (ICD-10-PCS; principal; 2018-06-22)
DX: M16.11 Unilateral primary osteoarthritis, right hip (principal); M87.88 Other osteonecrosis, other site; D62 Acute posthemorrhagic anemia; G89.29 Other chronic pain; M54.5 Low back pain; E03.9 Hypothyroidism, unspecified; I25.2 Old myocardial infarction; I25.10 Atherosclerotic heart disease of native coronary artery without angina pectoris; M47.816 Spondylosis without myelopathy or radiculopathy, lumbar region; I12.9 Hypertensive chronic kidney disease with stage 1 through stage 4 chronic kidney disease, or unspecified chronic kidney disease; N18.3 Chronic kidney disease, stage 3 (moderate); E78.5 Hyperlipidemia, unspecified; I48.0 Paroxysmal atrial fibrillation; E66.9 Obesity, unspecified; H40.9 Unspecified glaucoma; I95.9 Hypotension, unspecified; Z68.36 Body mass index [BMI] 36.0-36.9, adult; Z88.0 Allergy status to penicillin
CPT/HCPCS: 36415; 80048; 81001; 83735; 85025; 85027; 86850; 86900; 86901; 87081; 87086; J0131; J1885; J1956; J2001; J2250; J2405; J2704; J2795; J3010; J3370; J3490; J7050; S0020

== ENCOUNTER 2018-06-16 10:24 | Outpatient (CLI) | payer MEDICARE ==
[2018-06-16 11:08] LABS: Prothrombin Time 13.5 SEC (12.0-14.7)
--- NOTE | 2018-06-16 21:22 | EKG ---
Test Reason : Blood Pressure : / mmHG Vent. Rate : 057 BPM Atrial Rate : 057 BPM P-R Int : 228 ms QRS Dur : 084 ms QT Int : 398 ms P-R-T Axes : 041 056 053 degrees QTc Int : 387 ms Sinus bradycardia with 1st degree A-V block Otherwise normal ECG When compared with ECG of 19-FEB-2018 12:37, OR interval has increased Confirmed by DAVID MADDOX, SDavid ([id number]) on 06/16/2018 9:22:14 PM Referred By: MENDEL Confirmed By:DR. Alejandra HERNANDEZ MD
== END 2018-06-16 10:25 | disposition home or self-care (01) ==
LOC: LABBT 10:24
PROVIDERS: ATTEND Orthopaedic Surgery
DX: Z01.818 Encounter for other preprocedural examination (principal); M16.11 Unilateral primary osteoarthritis, right hip
CPT/HCPCS: 85610; 93005; 93010

== ENCOUNTER 2019-05-04 14:04 | Outpatient (CLI) | payer MEDICARE ==
[~2019-05-04 14:04] MED LIST: Iopamidol-370 76% 500 ML 1 ML ONE
--- NOTE | 2019-05-04 15:47 | CT ---
CT ABDOMEN WITH AND WITHOUT IV CONTRAST 05/04/2019 CLINICAL INFORMATION: History of reported right renal mass on outside examination. Frequent micturition. Chronic kidney dis ease. COMPARISON: None. Technique: Multiple contiguous axial CT images are obtained through the abdomen and pelvis with IV contrast. Cor onal reformatted images are provided. FINDINGS: Lower Chest: within normal limits. Vessels: Scattered vascular calcifications are seen in the abdominal aorta and iliac arteries. Abdomen: Portal vein:Patent Gallbladder: Within normal limits for CT imaging. Liver: within normal limits. Spleen: within normal limits. Pancreas: within normal limits. Adrenals: within normal limits. Kidneys: Bilateral parapelvic renal cysts are present. Subcentimeter too small to characterize hypode nse lesion is seen in the inferior pole right kidney. A 1.4 cm hypodense lesion is seen in the posterior aspect midportion right kidney. This is difficult to adequately characterize due to very sm all size. There is suggestion of mild enhancement within this lesion. However, I am unsure whether this is related to true enhancement or secondary to small size of the lesion. No additional enhancing renal lesion is identified. Direct comparison with prior study would be helpful to determine stability of this lesion. Bowel: Small amount retained fecal material throughout the colon. Loops of small bowel are normal in caliber. There is a small hiatal hernia with the fundus of stomach above the level of the hemidiaphragms. Appendix: The appendix is visualized and normal in caliber. Peritoneum: No ascites or free air; no fluid collection. Mesentery and Retroperitoneum: No enlarged mesenteric or retroperitoneal lymph nodes. Abdominal Wall: Small fat-containing umbilical hernia is identified. Bones: Degenerative changes are seen in the spine with left convex curvature of thoracolumbar spine. Right total hip prosthesis is noted. IMPRESSION: 1. Difficult to characterize hypodense lesion posterior aspect midportion right kidney measuring 1.4 cm. There is perceived enhancement, but this may be secondary to very small size of the lesion and difficulty in obtaining accurate attenuation coefficient. Direct correlation with outside study would be helpful for further evaluation, if this is able to be obtained. If prior study is unable to be obtained, short 6 month follow-up examination is suggested. 2. No renal calculi are seen bilaterally. 3. Bilateral parapelvic renal cysts.
== END 2019-05-04 14:05 | disposition home or self-care (01) ==
LOC: BICCT 14:04
PROVIDERS: ATTEND Urology
DX: N18.9 Chronic kidney disease, unspecified (principal); N28.89 Other specified disorders of kidney and ureter; R35.0 Frequency of micturition; N28.1 Cyst of kidney, acquired
CPT/HCPCS: 36415; 74170; 80048; 81001

== ENCOUNTER 2019-09-03 10:29 | Outpatient (CLI) | payer MEDICARE ==
--- NOTE | 2019-09-03 15:31 | CT ---
CLINICAL HISTORY: Right renal mass. TECHNIQUE: Multiple contiguous axial images were obtained and a CT of the abdomen without and with IV contrast. Postcontrast images were obtained in the nephrographic and excretory phases. Coronal and sagittal reformats were performed. COMPARISON: 05/04/2019 FINDINGS: Kidneys: There is a stable 1.1 cm hypodense region in the posterior aspect of the right kidney. This demonstrates questionable enhancement on the excretory phase images. No calcifications are seen in either kidney. There are multiple bilateral parapelvic renal cysts. Liver: Unremarkable. Gallbladder and biliary system: Normal. No CT evident gallstones. No biliary ductal dilatation. Spleen: Normal. Pancreas: Normal. Adrenal glands: Normal. GI tract: Normal. Abdominal aorta and its major branches: Normal. No aneurysm. Peritoneum/retroperitoneum: Normal. No ascites. No adenopathy. Body wall and musculoskeletal: Mild degenerative changes in the spine. Visualized lower thorax: Moderate hiatal hernia. No pulmonary parenchymal mass or pleural effusion. IMPRESSION: 1. Stable right renal hypodensity 2. Bilateral parapelvic renal cysts 3. Hiatal hernia
== END 2019-09-03 10:30 | disposition home or self-care (01) ==
LOC: BICCT 10:29
PROVIDERS: ATTEND Urology
DX: N28.89 Other specified disorders of kidney and ureter (principal); N18.9 Chronic kidney disease, unspecified; N28.1 Cyst of kidney, acquired; K44.9 Diaphragmatic hernia without obstruction or gangrene
CPT/HCPCS: 36415; 74170; 80048; Q9967

== ENCOUNTER 2020-03-22 12:33 | Outpatient (CLI) | payer MEDICARE ==
[2020-03-22] MEDS ORDERED: Iopamidol-370 76% 500 ML 1 ML ONE (13:10)
--- NOTE | 2020-03-22 13:40 | CT ---
CT ABDOMEN WITH AND WITHOUT IV CONTRAST 03/22/2020 CLINICAL INFORMATION: Follow-up right renal mass. COMPARISON: 09/02 and 05/04/2019 Technique: Multiple contiguous axial CT images are obtained through the abdomen and pelvis with IV contrast. Cor onal reformatted images are provided. FINDINGS: Lower Chest: Lung bases are clear. Vessels: Minimal vascular calcifications present. Abdomen: Portal vein:Patent Gallbladder: Within normal limits for CT imaging. Liver: within normal limits. Spleen: within normal limits. Pancreas: within normal limits. Adrenals: within normal limits. Kidneys: Bilateral parapelvic renal cysts are again seen. A stable 1.2 cm exophytic lesion is seen in volving midportion right kidney unchanged in size or appearance, and again, there does appear to be mild enhancement. No additional renal lesion is seen. Bowel: A few scattered colonic diverticuli are seen at the hepatic flexure. Small hiatal hernia is ag ain present. Peritoneum: No ascites or free air; no fluid collection. Mesentery and Retroperitoneum: No enlarged mesenteric or retroperitoneal lymph nodes. Abdominal Wall: within normal limits. Bones: Multilevel degenerative changes with left convex curvature of thoracolumbar spine. No suspicio us lytic or sclerotic osseous lesion is seen. IMPRESSION: 1. Stable right renal lesion. 2. Bilateral parapelvic renal cysts. 3. Hiatal hernia.
== END 2020-03-22 12:34 | disposition home or self-care (01) ==
LOC: BICCT 12:33
PROVIDERS: ATTEND Urology
DX: N28.89 Other specified disorders of kidney and ureter (principal); R35.0 Frequency of micturition; N28.1 Cyst of kidney, acquired; K44.9 Diaphragmatic hernia without obstruction or gangrene
CPT/HCPCS: 74170; 82565

== ENCOUNTER 2020-12-12 08:16 | Outpatient (CLI) | payer MEDICARE | END 2020-12-12 08:17 | disposition home or self-care (01) | LOC: BICULT 08:16 | PROVIDERS: ATTEND Urology | DX: N28.1 Cyst of kidney, acquired (principal) | CPT/HCPCS: 76770 ==

== ENCOUNTER 2021-02-22 14:53 | Outpatient (CLI) | payer MEDICARE | END 2021-02-22 14:54 | disposition home or self-care (01) | LOC: BICCT 14:53 | PROVIDERS: ATTEND Internal Medicine Cardiovascular Disease | DX: R55 Syncope and collapse (principal); M47.812 Spondylosis without myelopathy or radiculopathy, cervical region; I65.22 Occlusion and stenosis of left carotid artery; M50.30 Other cervical disc degeneration, unspecified cervical region | CPT/HCPCS: 70498; 82565 ==

== ENCOUNTER 2021-04-09 08:26 | Outpatient (CLI) | payer MEDICARE | END 2021-04-09 08:27 | disposition home or self-care (01) | LOC: CT 08:26 | PROVIDERS: ATTEND Urology | DX: N28.89 Other specified disorders of kidney and ureter (principal); K80.20 Calculus of gallbladder without cholecystitis without obstruction; N28.1 Cyst of kidney, acquired; K44.9 Diaphragmatic hernia without obstruction or gangrene | CPT/HCPCS: 74170; 82565 ==